=== PATIENT | female | born 1965 | race African-American/Black ===

== ENCOUNTER 2022-01-21 13:24 | Inpatient (IN) | payer MEDICARE, OTHER, SELFPAY ==
[2022-01-21] VITALS (30 sets, daily range): BP systolic 101–173; BP diastolic 63–101; PULSE 53–92; RESP 13–24; TEMP 36.4–36.5; O2SAT 97–100; BMI 29.9
[2022-01-21 14:03] LABS: Basophils Percent Auto 0.5 % (0.2-1.2); Eosinophils Absolute Auto 0.2 K/mm3 (0-0.3); Eosinophils Percent Auto 2.5 % (0-4.4); Hematocrit 33.4 % (37.0-47.0); Hemoglobin 10.9 g/dL (12.0-15.0); Immature Granulocyte Absolute 0.01 K/mm3 (0.00-0.031); Immature Granulocyte Percent A 0.2 % (0-0.5); Lymphocytes Absolute Auto 1.76 K/mm3 (0.9-3.2); Mean Corpuscular HGB Conc 32.6 g/dl (32-36); Mean Corpuscular Hemoglobin 29.6 pg (26-34); Mean Corpuscular Volume 90.8 fl (80-100); Mean Platelet Volume 10.3 fl (7.4-10.4); Monocytes Absolute Auto 0.4 K/mm3 (0.1-0.6); Neutrophils Absolute Auto 4.2 K/mm3 (1.3-6.7); Neutrophils Percent Auto 63.8 % (45.5-73.1); Platelet Count Result 412 k/mm3 (150-375); Red Blood Count 3.68 M/mm3 (4.2-5.4); Red Cell Distribution Width 16.5 % (11.5-14.5); White Blood Count 6.5 K/mm3 (4.5-10.0)
[2022-01-21 14:13] LABS: Alanine Aminotransferase 21 U/L (6-35); Albumin Level 4.1 g/dL (3.5-5.1); Alkaline Phosphatase 63 U/L (38-126); Anion Gap 8 mmol/L (8-16); Aspartate Amino Transferase 38 U/L (14-36); Bilirubin,Total 0.4 mg/dL (0.2-1.3); Blood Urea Nitrogen 12 mg/dL (7-17); Calcium 8.8 mg/dL (8.4-10.2); Carbon Dioxide 30 mmol/L (22-30); Chloride 105 mmol/L (98-107); Estimated CRCL calculation 63 ml/min; Estimated Glomerular Filt Rate > 60; Glucose 96 mg/dL (65-110); Potassium 3.5 mmol/L (3.4-5.0); Sodium 143 mmol/L (137-145)
[2022-01-21 14:14] LABS: Acetaminophen < 10 ug/mL (10-30); Ethanol < 10 mg/dL (<10); Salicylate < 1.0 mg/dL (2-20)
[2022-01-21 14:20] LABS: Amphetamine Screen Urine Positive (Negative); Barbiturate Screen Urine Negative (Negative); Benzodiazepines Screen Urine Positive (Negative); Cannabinoid Screen Urine Negative (Negative); Cocaine Screen Urine Negative (Negative); Methadone Screen Urine Negative (Negative); Opiate Screen Urine Negative (Negative); Phencyclidine Screen Urine Negative (Negative)
--- NOTE | 2022-01-21 14:21 | ED.GENADULT ---
HPI - General Adult General Chief complaint: Overdose Stated complaint: overdose Time Seen by Provider: 01/21/22 13:52 History of Present Illness HPI narrative: 56-year-old female presenting the emergency department for evaluation of an intentional overdose of Xanax. states that he attempted to take the medications away from her but at approximately 1:00 she took an unknown amount of medication possibly including Xanax. states he is unaware of the intention of the overdose. Patient does have a note in her pants that conveyed this was an intentional overdose. Patient does have a prior history of depression per family. Related Data Home Medications Medication Instructions Recorded Confirmed alprazolam 0.5 mg tablet 0.5 mg PO QNOON 01/21/22 01/21/22 alprazolam 1 mg tablet 1 mg PO BID 01/21/22 01/21/22 amlodipine 10 mg tablet 10 mg PO DAILY 01/21/22 01/21/22 dextroamphetamine-amphetamine 30 1 tablet PO BID 01/21/22 01/21/22 mg tablet hyoscyamine sulfate 0.125 mg 0.125 mg sublingual TID PRN Muscle 01/21/22 01/21/22 sublingual tablet Spasm omeprazole 40 mg capsule,delayed 40 mg PO BID 01/21/22 01/21/22 release pantoprazole 40 mg tablet,delayed 40 mg PO BID 01/21/22 01/21/22 release Allergies Allergy/AdvReac Type Severity Reaction Status Date / Time NICK Inhibitors Allergy Unknown Verified 01/21/22 18:31 iodine Allergy Unknown Verified 01/21/22 18:31 Review of Systems Review of Systems: ROS unobtainable: Yes unobtainable due to medical condition [facility] Past Medical History Medical History (Updated 01/21/22 @ 19:43 by Kaylen Hammonds NP) Attention deficit disorder Depression with anxiety Gastritis Hypertension Surgical History Surgical History (Updated 01/21/22 @ 19:44 by Kaylen Hammonds NP) H/O cervical spinal arthrodesis S/P partial hysterectomy Family History Family History (Updated 01/21/22 @ 19:45 by Kaylen Hammonds NP) Unknown Unknown family medical history Social History Social History (Updated 01/21/22 @ 19:45 by Kaylen Hammonds NP) Social History: the patient is a iagu-gn-fmhn mom. She has 2 children. She is . She denies any alcohol marijuana or tobacco use. She denies any durable power attorney law clerk for healthcare. Code status full code Smoking status: Never smoker Alcohol intake: never Substance use: never Substance use type: does not use Spiritual care concerns: No Exam Narrative: APPEARANCE: Somnolent but does awaken to stimuli HEAD: normocephalic, atraumatic. EYES: PERRLA/EOMI, conjunctivae clear. NOSE: Normal no drainage EARS:TMS clear with good light reflex. THROAT: Pharynx clear, no exudate. NECK: Supple. No adenopathy, no masses. RESPIRATORY: Airway patent, respirations nonlabored. Clear to auscultation bilaterally, no rales, rhonchi, wheezing. CARDIOVASCULAR: Regular rate and rhythm without murmurs rubs or gallops. ABDOMINAL: Soft, nontender, nondistended, normal bowel sounds MUSCULOSKELETAL: Moves all extremities. Strength/ROM intact, No edema, No calf tenderness. NEURO: Alert. Cranial nerves II through XII intact. Grossly intact SKIN: Warm, dry. Normal Color Course Reevaluation(s) Reevaluation #1: At time of transfer to the floor patient was more alert and appropriate and was responsive to verbal stimuli. Vital Signs Vital signs: Vital Signs Pulse Rate 71 01/21/22 13:44 Respiratory Rate 19 01/21/22 13:44 Temperature 97.7 F 01/21/22 20:00 Pulse Rate 73 01/21/22 20:00 Respiratory Rate 13 01/21/22 20:00 Blood Pressure 120/81 01/21/22 20:00 Pulse Oximetry 100 01/21/22 20:00 Oxygen Delivery Room Air 01/21/22 17:30 Medical Decision Making Vital Signs Vital Signs: Vital Signs Pulse Rate 71 01/21/22 13:44 Respiratory Rate 19 01/21/22 13:44 Temperature 97.7 F 01/21/22 20:00 Pulse Rate 73 01/21/22 20:00 Respiratory Rate 13 01/21/22 20:00 Blood Pressure
[2022-01-21 14:34] LABS: Appearance Urine Clear (Clear); Bilirubin Urine Negative (Negative); Blood Urine 1+ (Negative); Color Urine Yellow (Yellow); Glucose Urine UA Negative (Negative); Ketones Urine Negative (Negative); Leukocyte Esterase Ur Trace LEU/UL (Negative); Nitrate Urine Negative (Negative); Protein Urine Negative (Negative); Specific Grav Ur 1.015 (1.001-1.035); Urobilinogen Urine 0.2 mg/dL (<2.0); pH Urine 6.5 (5.0-9.0)
[2022-01-21 14:40] LABS: Add Urine Microscopic? YES; Bacteria Urine Trace /hpf; Mucus Urine Rare /lpf; Squamous Epithelial Cell Urine Rare /hpf (Few); WBC Urine 0-3 /hpf
[2022-01-21 14:41] LABS: SARS-CoV-2 RNA PCR Negative
[2022-01-21 14:48] LABS: Thyroid Stimulating Hormone 0.193 uIU/mL (0.465-4.680)
[2022-01-21] MEDS: SODIUM CHLORIDE 0.9% IV 1,000 ML 999 ML IV CONT (17:22)
--- NOTE | 2022-01-21 17:30 | PC.NURSE ---
Addendum entered by Marcelina Porras RN 01/21/22 20:02: RN obtained phone numbers for patient mother and brother. Updated numbers with admitting. Fred Montejo is not to visit patient at this time. Original Note: Patient stated she only wants her Mother Yi and Brother George to visit at this time. patient does not know there numbers at this time.
--- NOTE | 2022-01-21 18:11 | ADMGEN ---
This patient, Deepali Montejo, was admitted to Intensive Care Unit-9 at 1720. Patient/family oriented to hospital policies and general routines including ID bracelet, bed and alarms, visiting hours, pain management, procedures, bathroom and other care routines, personal items, smoking policy, room service/diet, and visiting hours. Information on how to activate the Rapid Response Team has been discussed. Patient/Family are encouraged to report perceived risks to care and to ask questions if they do not understand what they are told or what they should do.
--- NOTE | 2022-01-21 18:53 | PM.IMHP ---
H&P: HPI History of Present Illness Date/Time: 01/21/22 18:53 Chief Complaint: overdose Narrative: this is a 56-year-old female patient who has a history of having depression and anxiety as well as ADD. The patient took in intentional overdose of Xanax. The patient has been having and be with her and he attempted to get the medication away from her. A suicide note was found in her pants. The patient took an unknown amount of Xanax approximately 1:00 p.m. today. The patient was very lethargic. She is difficult to arouse. It is difficult to get her to answer questions for the interview. Patient will wake up for few minutes any other questions and then go right back to sleep. Her tox screen was positive for amphetamines and benzodiazepines. H&H is 10.9 and 33.4. The patient is being admitted to observation status on the date of service of 01/21/2022. Review of Systems Review of Systems: See HPI All systems reviewed & are unremarkable except as noted in HPI and below Constitutional: Constitutional: Reports as per HPI and Reports no additional constitutional complaints Eyes: Eyes: Reports as per HPI and Reports no additional eye complaints ENT: Reports system reviewed and no additional complaints, except as documented and Reports Normal hearing present Cardiovascular: Cardiovascular: Reports no additional cardiovascular complaints Respiratory: Respiratory: Reports no additional respiratory complaints and Reports no additional respiratory complaints Gastrointestinal: Gastrointestinal: Reports as per HPI and Reports no additional gastrointestinal complaints Musculoskeletal: Musculoskeletal: Reports no additional musculoskeletal complaints Integumentary/Breasts: Skin/Breast: Reports system reviewed and no additional complaints, except as docu and Reports as per HPI Neurologic: Reports system reviewed and no additional complaints, except as documented, Reports as per HPI and Reports Normal hearing present Psychiatric: Psychiatric: Reports no additional psychiatric complaints and Reports as per HPI Endocrine: Endocrine: Reports no additional endocrine complaints Hematologic/Lymphatic: Hematologic/Lymphatic: Reports no additional hematologic/lymphatic complaints Allergic/Immunologic: Allergic/Immunologic: Reports no additional allergic/immunologic complaints [facility] Past Medical History Medical History (Updated 01/21/22 @ 19:43 by Kaylen Hammonds NP) Attention deficit disorder Depression with anxiety Gastritis Hypertension Surgical History Surgical History (Updated 01/21/22 @ 19:44 by Kaylen Hammonds NP) H/O cervical spinal arthrodesis S/P partial hysterectomy Family History Family History (Updated 01/21/22 @ 19:45 by Kaylen Hammonds NP) Unknown Unknown family medical history Social History Social History (Updated 01/21/22 @ 19:45 by Kaylen Hammonds NP) Social History: the patient is a bqvg-ie-ienr mom. She has 2 children. She is . She denies any alcohol marijuana or tobacco use. She denies any durable power associate attorney for healthcare. Code status full code Smoking status: Never smoker Alcohol intake: never Substance use: never Substance use type: does not use Spiritual care concerns: No Meds Home Medications and Allergies Home Medications Medication Instructions Recorded Confirmed Type alprazolam 0.5 mg tablet 0.5 mg PO QNOON 01/21/22 01/21/22 History alprazolam 1 mg tablet 1 mg PO BID 01/21/22 01/21/22 History amlodipine 10 mg tablet 10 mg PO DAILY 01/21/22 01/21/22 History dextroamphetamine-amphetamine 30 1 tablet PO BID 01/21/22 01/21/22 History mg tablet hyoscyamine sulfate 0.125 mg 0.125 mg sublingual TID PRN Muscle 01/21/22 01/21/22 History sublingual tablet Spasm omeprazole 40 mg capsule,delayed 40 mg PO BID 01/21/22 01/21/22 History release pantoprazole 40 mg tablet,delayed 40 mg PO BID 01/21/22 01/21/22 History release
[2022-01-21] MEDS: SODIUM CHLORIDE 0.9% IV 1,000 ML 125 ML IV CONT (19:03)
[2022-01-21] MEDS: FAMOTIDINE 20 MG/2 ML VIAL IV PUSH (21:42)
[2022-01-22] VITALS (18 sets, daily range): BP systolic 104–161; BP diastolic 70–95; PULSE 55–92; RESP 13–26; TEMP 35.9–36.9; O2SAT 98–100
[2022-01-22] MEDS: SODIUM CHLORIDE 0.9% IV 1,000 ML 125 ML IV CONT ×2 (02:47→10:39)
[2022-01-22 04:18] LABS: Basophils Percent Auto 0.5 % (0.2-1.2); Eosinophils Absolute Auto 0.3 K/mm3 (0-0.3); Eosinophils Percent Auto 5.4 % (0-4.4); Hemoglobin 10.4 g/dL (12.0-15.0); Immature Granulocyte Absolute 0.01 K/mm3 (0.00-0.031); Immature Granulocyte Percent A 0.2 % (0-0.5); Lymphocytes Absolute Auto 2.46 K/mm3 (0.9-3.2); Mean Corpuscular HGB Conc 32.5 g/dl (32-36); Mean Corpuscular Hemoglobin 29.3 pg (26-34); Mean Corpuscular Volume 90.1 fl (80-100); Mean Platelet Volume 9.6 fl (7.4-10.4); Monocytes Absolute Auto 0.5 K/mm3 (0.1-0.6); Monocytes Percent Auto 8.8 % (2.6-8.5); Neutrophils Absolute Auto 2.3 K/mm3 (1.3-6.7); Neutrophils Percent Auto 41.1 % (45.5-73.1); Platelet Count Result 367 k/mm3 (150-375); Red Blood Count 3.55 M/mm3 (4.2-5.4); Red Cell Distribution Width 16.6 % (11.5-14.5); White Blood Count 5.6 K/mm3 (4.5-10.0)
[2022-01-22 04:35] LABS: Alanine Aminotransferase 20 U/L (6-35); Albumin Level 3.2 g/dL (3.5-5.1); Alkaline Phosphatase 64 U/L (38-126); Anion Gap 7 mmol/L (8-16); Aspartate Amino Transferase 41 U/L (14-36); Bilirubin,Total 0.4 mg/dL (0.2-1.3); Blood Urea Nitrogen 8 mg/dL (7-17); Calcium 8.8 mg/dL (8.4-10.2); Carbon Dioxide 27 mmol/L (22-30); Chloride 107 mmol/L (98-107); Estimated CRCL calculation 86 ml/min; Estimated Glomerular Filt Rate > 60; Glucose 91 mg/dL (65-110); Magnesium 1.9 mg/dL (1.6-2.3); Potassium 3.5 mmol/L (3.4-5.0); Sodium 141 mmol/L (137-145)
[2022-01-22 05:10] LABS: Thyroid Stimulating Hormone Reflex 0.164 uIU/mL (0.465-4.68)
[2022-01-22 08:01] LABS: Rapid Plasma Reagin Non-Reactive (NonReactive)
[2022-01-22] MEDS: amLODIPine BESYLATE 5 MG TABLET 10 MG PO (08:08)
[2022-01-22] MEDS: FAMOTIDINE 20 MG/2 ML VIAL IV PUSH (08:08)
[2022-01-22] MEDS: SODIUM CHLORIDE 0.9% IV 1,000 ML 999 ML IV CONT (08:15)
[2022-01-22 09:32] LABS: Free T4 Free Thyroxine Reflex 0.94 ng/dL (0.78-2.19)
[2022-01-22] MEDS: HYDROcodone/acetaminophen (*CRX) 5-325 MG TABLET 1 TAB PO ×3 (10:04→23:46)
[2022-01-22] MEDS: ONDANSETRON INJ 4 MG/2 ML VIAL IV PUSH ×3 (10:39→23:47)
[2022-01-22] MEDS: SUCRALFATE SUSP 100 MG/ML 10 ML UDC 1000 MG PO ×3 (12:05→19:47)
[2022-01-22] MEDS: PANTOPRAZOLE SODIUM IV 40 MG VIAL IV PUSH ×2 (12:05→19:47)
[2022-01-22] MEDS: diphenhydrAMINE HCl INJ 50 MG/ML VIAL 25 MG IV PUSH ×3 (12:06→23:47)
--- NOTE | 2022-01-22 13:09 | PM.IMPN ---
Progress Note: A&P Assessment and Plan (1) Drug overdose: Qualifiers: Encounter type: initial encounter Injury intent: intentional self-harm Qualified Code(s): T50.902A - Poisoning by unspecified drugs, medicaments and biological substances, intentional self-harm, initial encounter Code(s): T50.901A - Poisoning by unspecified drugs, medicaments and biological substances, accidental (unintentional), initial encounter Status: Acute Assessment and Plan: Patient with history of anxiety, depression and ADD. Patient states that while arguing with her , she took 2 full Xanax tablets. She denies suicide ideation or that this was a suicide attempt. She did have a note in her pocket that is suspicious for suicide note though she did not specifically states that she wanted to end her life. patient appears to be recovering well from the Xanax overdose. Will remove Pedraza catheter. Stop IV fluids. Crisis evaluation possible placement. Discussed (2) Depression with anxiety: Code(s): F41.8 - Other specified anxiety disorders Status: Acute Assessment and Plan: Patient has depression and anxiety and takes Xanax and Seroquel at home. These medications on hold. As above. (3) Attention deficit disorder: Code(s): F98.8 - Other specified behavioral and emotional disorders with onset usually occurring in childhood and adolescence Status: Acute Assessment and Plan: Mood stable. Continue to hold Adderall (4) Hypertension: Code(s): I10 - Essential (primary) hypertension Status: Acute Assessment and Plan: blood pressure elevated at times. Norvasc has been resumed with improvement. Continue with Norvasc. (5) Gastritis: Code(s): K29.70 - Gastritis, unspecified, without bleeding Status: Acute Assessment and Plan: Patient with gastritis and history gastric ulcer. May have mild anemia related to recent GI bleed. Continue Carafate and Protonix. Plan DVT Prophylaxis - SCDs Code status: Full Diet: heart healthy with dietary supplements. Subjective Date/time seen: 01/22/22 13:09 Interval history: 56yo female with ADD, anxiety and depression here after intentional Xanax overdose. She denies suicidal ideation recently. She has never been hospitalized in a psychiatric facility. She states that she was fighting with her and dropped her Xanax on the floor. As she was picking up tablets, she took 2 full Xanax doses. She normally takes Xanax 1 tablet twice a day with half a tablet at noon. She does see a counselor at [facility]. 's available who states the patient has been lot of pain and anxiety recent. Patient did have a note in her pocket that mentions that there is ongoing argument with the about patient's fidelity. Recent medical events include right total knee replacement in October. She had endoscopy including EGD and colonoscopy 2 weeks ago and found to have gastric ulcer. She was on Percocet but is down to her last tablet. Percocet was for pain from a gastric ulcer she states. She also had a kidney stone recently with stent placement. Stent is to be removed on 02/02/2022 by a urologist at [facility]. Exam Narrative: AF 96.6 137/77 74 14 100% ra Gen - NARD Chest - CTA bilaterally, nml RR CV - RRR S1/S2 Abd - Soft, ND, Positive BS, mild lower quadrant pain without guarding - Pedraza secured draining clear yellow urine Ext - No pedal edema Psych - depressed mood and sad affect. speaks softly. well kempt Skin - Warm and dry Objective Data Vital Signs Vital Signs: Vital Signs - 24 hr 01/21/22 13:48 01/21/22 13:44 01/21/22 13:45 Temperature 97.6 F Pulse Rate 72 71 92 Respiratory Rate 19 19 24 H Blood Pressure 123/73 Pulse Oximetry 100 Oxygen Delivery Room Air 01/21/22 13:46 01/21/22 15:16 01/21/22 18:00 Temperature Pulse Rate 82 60
[2022-01-22 13:50] LABS: Total Triiodothyronine (T3) 1.18 NG/ML (0.97-1.69)
--- NOTE | 2022-01-22 14:15 | PC.NURSE ---
Crisis in for patient evaluation
--- NOTE | 2022-01-22 15:35 | WPDCNINT ---
Assessment and Plan Assessment and plan (1) Drug overdose: Qualifiers: Encounter type: initial encounter Injury intent: intentional self-harm Qualified Code(s): T50.902A - Poisoning by unspecified drugs, medicaments and biological substances, intentional self-harm, initial encounter Code(s): T50.901A - Poisoning by unspecified drugs, medicaments and biological substances, accidental (unintentional), initial encounter Status: Acute Assessment and Plan: Patient with history anxiety, depression ADD. Presented the ED with Xanax overdose on unknown amount -patient currently denies suicide ideation, suicide attempt on home was settled ideation. -patient did have a suicide note in her pocket. -currently medically stable, -will have care coordination and crisis management evaluate the patient -patient has been signed off by poison Control -suicide precautions -bedside sitter in room (2) Depression with anxiety: Code(s): F41.8 - Other specified anxiety disorders Status: Acute Assessment and Plan: Takes Seroquel and Xanax at home, currently on hold (3) Attention deficit disorder: Code(s): F98.8 - Other specified behavioral and emotional disorders with onset usually occurring in childhood and adolescence Status: Acute Assessment and Plan: Hold Adderall -urine drug screen was positive for amphetamines and benzos (4) Hypertension: Code(s): I10 - Essential (primary) hypertension Status: Acute Assessment and Plan: Continue amlodipine (5) Gastritis: Code(s): K29.70 - Gastritis, unspecified, without bleeding Status: Acute Assessment and Plan: Continue Carafate and Protonix Plan Stress ulcer prophylaxis: Protonix and Carafate Nutrition: Heart healthy diet Code Status: Full code Critical Care Time Spent: 41 minutes Due to a high probability of clinically significant, life threatening deterioration, the patient required my highest level of preparedness to intervene emergently and I personally spent this critical care time directly and personally managing the patient. This critical care time included obtaining a history; examining the patient; pulse oximetry; ordering and review of studies; arranging urgent treatment with development of a management plan; evaluation of patient's response to treatment; frequent reassessment; and discussions with other providers. It was exclusive of separately billable procedures and treating other patients and teaching time. Please see Assessment and Plan section and the rest of the note for further information on patient assessment and treatment It Sales Consultant Consult Note Consult date: 01/22/22 Reason for consult: Benzodiazepine overdose HPI: Deepali Montejo is a 56 year old female with past medical history of ADD, depression with anxiety with gastritis, hypertension, he peptic ulcer disease, chronic pain secondary to cervical spine surgery, kidney stones, knee replacement surgeries presented the ED on 01/21/2022 with intentional overdose of unknown amount of Xanax 1 mg pills. Patient did have a note in a [place] conveyed that it was an intentional overdose. Patient was given 1 L IV fluid bolus and transferred to the ICU for further management -urine tox screen was positive for amphetamines and benzodiazepines Patient seen and examined this morning in the ICU, is awake, alert, oriented x3. Complains of neck, back and knee pain. She denies any suicidal or homicidal ideation at this time. Flat depressed affect, hemodynamically stable, adequate urine output, afebrile Review of Systems Review of Systems: All systems reviewed & are unremarkable except as noted in HPI and below PMFSH Past Medical History Medical History (Updated 01/21/22 @ 19:43 by Kaylen Hammonds NP) Attention deficit disorder Depression with anxiety Gastritis Hypertension Surgical History Surgical History (Updated
[2022-01-22] MEDS: LACTULOSE 20 GM/30 ML UDC 6.7 GM PO (17:44)
[2022-01-23] VITALS: BP 138/76; PULSE 65; RESP 14; TEMP 37; O2SAT 98
--- NOTE | 2022-01-23 00:25 | PC.NURSE ---
This patient, Deepali Montejo, was transferred to [facility] on 01/23/22 at 0025. Personal belongings sent with patient. Report given to JULIET Gloria. Appropriate documentation sent with patient. Sitter with patient.
--- NOTE | 2022-01-23 00:42 | PC.NURSE ---
Received patient transfer from ICU 9 to room 333 @0030. Patient's belongings are at the bedside and a sitter is present. Patient oriented to room and SI precautions were implemented. Patient is resting comfortably.
[2022-01-23 05:01] VITALS: BP 135/78; PULSE 59; RESP 20; TEMP 36.6; O2SAT 97
[2022-01-23] MEDS: SUCRALFATE SUSP 100 MG/ML 10 ML UDC 1000 MG PO ×4 (05:44→20:30)
[2022-01-23 05:55] LABS: Hematocrit 34.6 % (37.0-47.0); Hemoglobin 11.2 g/dL (12.0-15.0); Mean Corpuscular HGB Conc 32.4 g/dl (32-36); Mean Corpuscular Hemoglobin 29.4 pg (26-34); Mean Corpuscular Volume 90.8 fl (80-100); Platelet Count Result 400 k/mm3 (150-375); Red Blood Count 3.81 M/mm3 (4.2-5.4); Red Cell Distribution Width 16.6 % (11.5-14.5); White Blood Count 8.3 K/mm3 (4.5-10.0)
[2022-01-23 06:08] LABS: Alanine Aminotransferase 19 U/L (6-35); Albumin Level 3.7 g/dL (3.5-5.1); Alkaline Phosphatase 74 U/L (38-126); Anion Gap 7 mmol/L (8-16); Aspartate Amino Transferase 29 U/L (14-36); Bilirubin,Total 0.4 mg/dL (0.2-1.3); Blood Urea Nitrogen 8 mg/dL (7-17); Carbon Dioxide 27 mmol/L (22-30); Chloride 103 mmol/L (98-107); Creatine Kinase 56 U/L (30-135); Estimated CRCL calculation 75 ml/min; Estimated Glomerular Filt Rate > 60; Glucose 89 mg/dL (65-110); Potassium 3.4 mmol/L (3.4-5.0); Sodium 137 mmol/L (137-145)
[2022-01-23] MEDS: LACTULOSE 20 GM/30 ML UDC 6.7 GM PO ×2 (08:21→16:59)
[2022-01-23] MEDS: PANTOPRAZOLE 40 MG TABLET PO ×2 (08:21→20:30)
[2022-01-23] MEDS: amLODIPine BESYLATE 5 MG TABLET 10 MG PO (08:21)
[2022-01-23] MEDS: HYDROcodone/acetaminophen (*CRX) 5-325 MG TABLET 1 TAB PO (08:32)
[2022-01-23] MEDS: ACETAMINOPHEN 325 MG TABLET 650 MG PO ×2 (15:20→20:33)
--- NOTE | 2022-01-23 15:58 | PC.NURSE ---
Pt came in after fighting with her at home, followed by a suicide attempt. Pt has not consistently told staff what happened. Pt was found to have a suicide note in pocket. Pt had previously been evaluated and cleared by crisis, but pt withheld information pertinent to their decision making process. Pt was re-evaluated by crisis team and determined that she needed to be placed on an involuntary hold. Pt had phone call with [place] to determine if pt would be applicable for placement. Nurse ready to wear department manager and laundry housekeeper have agreed to let and mother come to visit patient. I do not agree with this decision since the and her fighting is what led to the situation that brought the pt in. I voiced my concerns about this triggering and upsetting pt. Charge nurse aware of and agrees with concerns that we are allowing visitors at this time. We are monitoring closely and will reassess the situation if problems with visitors occur. Pt's mother has called to inform me that she and her would be coming to see the pt. I explained that the pt was only allowed one visitor and the stated they would just switch out. I informed them that was not allowed. Pt has bouts of tearfulness and states she feels like she is being punished. She states that she does not know why she is going to a facility for help and not going home. I explained to the pt that we are just trying to help her and be sure that she is safe before she is discharged home. Will continue to monitor pt. Pt continues to have hospital supplied surveillance with sitter regardless of visitor status.
[2022-01-23 16:00] VITALS: BP 139/97; PULSE 75; RESP 20; TEMP 35.7; O2SAT 99
--- NOTE | 2022-01-23 17:19 | PM.DS ---
DS: Admitting Diagnosis Discharge Date 01/23/22 Admitting Diagnosis Drug Overdose DS: Discharge Diagnosis Discharge Diagnosis (1) Drug overdose: Qualifiers: Encounter type: initial encounter Injury intent: intentional self-harm Qualified Code(s): T50.902A - Poisoning by unspecified drugs, medicaments and biological substances, intentional self-harm, initial encounter Code(s): T50.901A - Poisoning by unspecified drugs, medicaments and biological substances, accidental (unintentional), initial encounter Status: Acute (2) Depression with anxiety: Code(s): F41.8 - Other specified anxiety disorders Status: Acute (3) Attention deficit disorder: Code(s): F98.8 - Other specified behavioral and emotional disorders with onset usually occurring in childhood and adolescence Status: Acute (4) Hypertension: Code(s): I10 - Essential (primary) hypertension Status: Acute (5) Gastritis: Code(s): K29.70 - Gastritis, unspecified, without bleeding Status: Acute DS: Summary Hospital Course Reason for hospitalization: 56yo female with ADD, anxiety and depression here after intentional Xanax overdose. Hospital Course: Patient with history of anxiety, depression and ADD.?She takes Xanax and Seroquel at home. Patient states that while arguing with her , she took 2 full Xanax tablets.? She denies suicide ideation or that this was a suicide attempt.?She did have a note in her pocket that is suspicious for suicide note though she did not specifically states that she wanted to end her life. Patient was monitored in the ICU and recovered well from the overdose. During her hospital course, the story of the events changed so unclear exactly what happened. She was evaluated by Crisis and inpatient psychiatric placement was recommended. The reasoning for inpatient psychiatric care was explained to the patient but she did not appear to be receptive to this information. She overall did well and was able to be transferred to psychiatric facility. Status at Discharge Cognitive/behavioral status at discharge: Stable Time Spent with Patient Time attestation: Total time spent providing and/or coordinating discharge services: 35 minutes Time spent: Greater than 30 minutes Exam Narrative: AF 97.8 135/78 59 20 97% ra Gen - NARD Chest - CTA bilaterally, nml RR CV - RRR S1/S2 Abd - Soft, ND, +BS Ext - No pedal edema Psych - depressed mood Skin - Warm and dry DS: Data Data Completed and Pending Labs on day of discharge: Labs from last 24 hours 01/23/22 01/23/22 05:43 05:43 WBC 8.3 RBC 3.81 L Hgb 11.2 L Hct 34.6 L MCV 90.8 MCH 29.4 MCHC 32.4 RDW 16.6 H Plt Count 400 H MPV 10.0 Sodium 137 Potassium 3.4 Chloride 103 Carbon Dioxide 27 Anion Gap 7 L BUN 8 Creatinine 0.70 Estim Creat Clear Calc 75 Estimated GFR > 60 Glucose 89 Calcium 9.0 Total Bilirubin 0.4 AST 29 ALT 19 Alkaline Phosphatase 74 Total Creatine Kinase 56 Total Protein 6.0 L Albumin 3.7 Discharge Plan Discharge Attending physician on discharge: Lefty Driscoll Consulting providers: eJanie Dejesus Discharging Clinician: Lefty Driscoll Anticipated Discharge Date/Time: 01/23/22 17:26 Patient Disposition: Acute Care Hospital Activity: as tolerated Diet: heart healthy Discharge Instructions: Follow-up with your doctor in 1-2 weeks. Please call for appointment. Thank you for using [facility] for your health care needs. Patient Instructions: Antibiotic Form, Depression (DC), Help Prevent Suicide (DC), Suicide Prevention (DC) Stand Alone Forms: General Discharge Information Follow-up/Referrals: PHYSICIAN NOT ON STAFF,NONSTAFF [Primary Care Provider] - Call for Appointment Discharge Medications: [place] Antifungal (micon) 2 % Ointment 1 applic top
== END 2022-01-23 20:50 | disposition short-term general hospital (02) | DRG 918 ==
LOC: ANHED 15:46 → ANHICU 16:23 → ANH3MEDSUR 01-23 00:37
PROVIDERS: Nurse Practitioner; Admitting Provider Student in an Organized Health Care Education/Training Program; Emergency Provider Emergency Medicine; Visit Provider Internal Medicine
DX: T42.4X2A Poisoning by benzodiazepines, intentional self-harm, initial encounter (principal); I10 Essential (primary) hypertension; K29.70 Gastritis, unspecified, without bleeding; K27.9 Peptic ulcer, site unspecified, unspecified as acute or chronic, without hemorrhage or perforation; F98.8 Other specified behavioral and emotional disorders with onset usually occurring in childhood and adolescence; F32.A Depression, unspecified; F41.9 Anxiety disorder, unspecified; Z20.822 Contact with and (suspected) exposure to COVID-19; Z96.651 Presence of right artificial knee joint; Z87.442 Personal history of urinary calculi
CPT/HCPCS: 36415; 80053; 80307; 81001; 81025; 82550; 82728; 83735; 84439; 84443; 84480; 85025; 85027; 86592; 96361; 96374; 96375; 96376; 99285; A9270; C9113; C9803; G0378; J1200; J2405; J7030; U0003; U0005

== ENCOUNTER 2023-08-28 00:58 | Emergency (ER) | payer MEDICARE, OTHER, SELFPAY ==
[2023-08-28] VITALS (10 sets, daily range): BP systolic 121–160; BP diastolic 83–105; PULSE 81; RESP 18; TEMP 36.4; O2SAT 97–100
--- NOTE | ~2023-08-28 | CT_ITS ---
EXAMINATION: CT abdomen pelvis wo con DATE: 08/28/2023 03:18 INDICATION: Epigastric abdominal pain. Nausea and vomiting. TECHNIQUE: Computed tomography (CT) of the abdomen and pelvis was performed without intravenous contr ast. Automated exposure control and iterative reconstruction technique were employed. The dose-length product was 445.85 mGy-cm. COMPARISON: None. FINDINGS: The visualized portions of the lung bases demonstrate mild atelectasis. No pleural effusion . The heart size is normal. No pericardial effusion. The liver and spleen are normal. There are surgi bobo changes in the stomach. There are changes of cholecystectomy. The pancreas, adrenal glands, and k idneys are normal. There are changes of right inguinal hernia repair. There are no dilated loops of b owel. There is a moderate volume of stool in colon. The appendix is not visualized. There is widespre ad edema in the mesentery. There is a small volume of ascites. There are no pathologically enlarged l ymph nodes. There is severe thoracic and lumbar spondylosis. IMPRESSION: 1. Widespread edema in the mesentery. 2. Small volume of ascites. Reviewed, dictated and finalized at location A.
--- NOTE | 2023-08-28 01:32 | ECG_ITS ---
Measurements Intervals [place] Rate: 71 P: 36 [place]: 171 QRS: 3 QRSD: 84 T: 10 QT: 386 QTc: 420 Interpretive Statements SINUS RHYTHM DELAYED PRECORDIAL R/S TRANSITION BASELINE ARTIFACT- II, III, AVF BORDERLINE ECG NO PREVIOUS ECG AVAILABLE FOR COMPARISON Electronically Signed On 08-28-2023 6:39:22 CDT by Ba Cunha D.O.
--- NOTE | 2023-08-28 01:32 | ED.ABDPAIN ---
HPI - Abdominal Pain General Chief Complaint: Abdominal Pain <HERMILA Daily Last Filed: 08/28/23 02:21> Stated Complaint: abd pain <HERMILA Daily Last Filed: 08/28/23 02:21> Time Seen by Provider: 08/28/23 01:18 <HERMILA Daily Last Filed: 08/28/23 02:21> Source: patient <HERMILA Daily Filed: 08/28/23 02:21> Mode of arrival: ambulatory <HERMILA Daily Filed: 08/28/23 02:21> Limitations: no limitations <HERMILA Daily Filed: 08/28/23 02:21> History of Present Illness HPI narrative: Patient is a 58 y/o female who presents to the ED with c/o epigastric abdominal pain. Patient reports she developed pain throughout her upper abdomen approximately 1 hour prior to arrival. she tried taking Tylenol at home without improvement. States pain radiates up into her chest slightly. She notes pain feels similar to when she had her gallbladder attacks in the past, but she has since had her gallbladder removed. Denies previous history of pancreatitis. She does not drink alcohol. Reports nausea, vomiting. Denies diarrhea constipation. Denies fevers. <HERMILA Daily Last Filed: 08/28/23 02:21> Related Data Home Medications: Home Medications Medication Instructions Recorded Confirmed alprazolam 0.5 mg tablet 0.5 mg PO QNOON 01/21/22 08/22/23 alprazolam 1 mg tablet 1 mg PO BID 01/21/22 08/22/23 amlodipine 10 mg tablet 10 mg PO DAILY 01/21/22 08/22/23 dextroamphetamine-amphetamine 30 1 tablet PO BID 01/21/22 08/22/23 mg tablet pantoprazole 40 mg tablet,delayed 40 mg PO BID 01/21/22 08/22/23 release hydroxyzine HCl 25 mg tablet 25 mg PO TID PRN Anxiety 01/22/22 08/22/23 trazodone 150 mg tablet 150 mg PO HS 01/22/22 08/22/23 amitriptyline 25 mg tablet 25 mg PO 08/22/23 08/22/23 gabapentin 400 mg capsule 400 mg PO 08/22/23 08/22/23 omeprazole 40 mg capsule,delayed 40 mg PO 08/22/23 08/22/23 release <Ceci Conteh PA-C - Last Filed: 08/28/23 02:21> Allergies/Adverse Reactions: Allergies Allergy/AdvReac Type Severity Reaction Status Date / Time Iodinated Contrast Media Allergy Mild Hives Verified 08/28/23 01:30 NICK Inhibitors Allergy Unknown Verified 08/28/23 01:30 iodine Allergy Unknown Verified 08/28/23 01:30 <Ceci Conteh PA-C - Last Filed: 08/28/23 02:21> Review of Systems Review of Systems: CONSTITUTIONAL: Denies fever, chills, or sweats. CARDIOVASCULAR: See HPI. RESPIRATORY: Denies cough or dyspnea. GASTROINTESTINAL: See HPI. GENITOURINARY: Denies dysuria or hematuria. MUSCULOSKELETAL: Denies back pain, extremity pain, myalgia. <Ceci Conteh PA-C - Last Filed: 08/28/23 02:21> All systems reviewed & are unremarkable except as noted in HPI and below <Ceci Conteh PA-C - Last Filed: 08/28/23 02:21> [facility] Past Medical History Medical History: Medical History Attention deficit disorder Depression with anxiety Gastritis Hypertension <Ceci Conteh PA-C - Last Filed: 08/28/23 02:21> Surgical History Surgical History: Surgical History H/O cervical spinal arthrodesis H/O hernia repair History of carpal tunnel release History of knee replacement S/P partial hysterectomy S/P shoulder surgery <Ceci Conteh PA-C - Last Filed: 08/28/23 02:21> Family History Family History: Family History Unknown Unknown family medical history <Ceci Conteh PA-C - Last Filed: 08/28/23 02:21> Social History Social History: Social History Social History: Smoking status: Never smoker Alcohol intake: never Substance use: never
--- NOTE | 2023-08-28 02:06 | PC.NURSE ---
3 different nurses have attemped to start IV on patient with no success. ICU pharmacist in charge owner called to come attempt. Provider aware
[2023-08-28] MEDS: SODIUM CHLORIDE 0.9% IV 1,000 ML 999 ML IV CONT (02:39)
[2023-08-28] MEDS: FAMOTIDINE 20 MG/2 ML VIAL IV PUSH (02:41)
[2023-08-28] MEDS: ONDANSETRON INJ 4 MG/2 ML VIAL IV PUSH (02:41)
[2023-08-28] MEDS: MORPHINE SULFATE (*CRX) 2 MG/ML INJ IV PUSH (02:53)
--- NOTE | 2023-08-28 03:05 | PC.NURSE ---
Phlebotomy called for blood collection
[2023-08-28 03:32] LABS: Basophils Percent Auto 0.1 % (0.2-1.2); Eosinophils Percent Auto 0.1 % (0-4.4); Hematocrit 38.8 % (37.0-47.0); Hemoglobin 13.2 g/dL (12.0-15.0); Immature Granulocyte Absolute 0.02 K/mm3 (0.00-0.031); Immature Granulocyte Percent A 0.2 % (0-0.5); Lymphocytes Absolute Auto 0.98 K/mm3 (0.9-3.2); Lymphocytes Percent Auto 9.1 % (18.3-44.2); Mean Corpuscular Hemoglobin 31.5 pg (26-34); Mean Corpuscular Volume 92.6 fl (80-100); Mean Platelet Volume 9.8 fl (7.4-10.4); Monocytes Absolute Auto 0.4 K/mm3 (0.1-0.6); Monocytes Percent Auto 3.8 % (2.6-8.5); Neutrophils Absolute Auto 9.3 K/mm3 (1.3-6.7); Neutrophils Percent Auto 86.7 % (45.5-73.1); Platelet Count Result 324 k/mm3 (150-375); Red Blood Count 4.19 M/mm3 (4.2-5.4); Red Cell Distribution Width 14.3 % (11.5-14.5); White Blood Count 10.7 K/mm3 (4.5-10.0)
[2023-08-28 03:38] LABS: Bacteria Urine None Seen /hpf; Non Pathogenic Casts 0-2; RBC Urine 0-2 /hpf (0-2); Squamous Epithelial Cell Urine None Seen /hpf (Few); WBC Urine 0-5 /hpf (0-3)
[2023-08-28 03:39] LABS: Appearance Urine Clear (Clear); Bilirubin Urine Negative (Negative); Blood Urine Negative (Negative); Color Urine Yellow (Yellow); Glucose Urine UA Negative (Negative); Ketones Urine Negative (Negative); Leukocyte Esterase Ur 1+ LEU/UL (Negative); Nitrate Urine Negative (Negative); Protein Urine Negative (Negative); Specific Grav Ur 1.015 (1.001-1.035); Urobilinogen Urine 0.2 mg/dL (<2.0)
[2023-08-28 03:40] LABS: Add Urine Microscopic? YES
[2023-08-28 03:47] LABS: Alanine Aminotransferase 38 U/L (6-35); Albumin Level 4.6 g/dL (3.5-5.1); Alkaline Phosphatase 88 U/L (38-126); Anion Gap 7 mmol/L (4-12); Aspartate Amino Transferase 47 U/L (14-36); Bilirubin,Total 0.8 mg/dL (0.2-1.3); Blood Urea Nitrogen 22 mg/dL (7-17); Calcium 9.8 mg/dL (8.4-10.2); Carbon Dioxide 26 mmol/L (22-30); Chloride 104 mmol/L (98-107); Estimated CRCL calculation 86 ml/min; Estimated Glomerular Filt Rate > 60; Glucose 107 mg/dL (65-110); Lipase 41 U/L (23-300); Potassium 4.1 mmol/L (3.4-5.0); Sodium 137 mmol/L (137-145)
[2023-08-28 03:48] LABS: Lactic Acid Reflex 1.1 mmol/L (0.7-2.0)
[2023-08-28 04:05] LABS: Troponin I < 0.012 ng/mL (0.000-0.034)
== END 2023-08-28 04:24 | disposition home or self-care (01) ==
PROVIDERS: Physician Assistant; Emergency Provider Emergency Medicine
DX: R10.13 Epigastric pain (principal); F98.8 Other specified behavioral and emotional disorders with onset usually occurring in childhood and adolescence; F41.8 Other specified anxiety disorders; Z90.710 Acquired absence of both cervix and uterus; Z96.659 Presence of unspecified artificial knee joint; R18.8 Other ascites; R94.31 Abnormal electrocardiogram [ECG] [EKG]
CPT/HCPCS: 36415; 74176; 80053; 81001; 83605; 83690; 84484; 85025; 93005; 96361; 96374; 96375; 99284; J2270; J2405; J7030

== ENCOUNTER 2025-04-22 16:54 | Emergency (ER) | payer MEDICARE, OTHER, SELFPAY ==
--- NOTE | ~2025-04-22 | CT_ITS ---
EXAMINATION: CT angiogram chest, abdomen and pelvis: DATE: 04/22/2025. INDICATION: 60-year-old female with epigastric pain, radiating to the back. Nausea and vomiting. TECHNIQUE: CT angiogram was performed with 100 cc of contrast and 2-D and 3-D images are reconstructed. Radiation dose 940 M GYCM. COMPARISON: Chest x-ray dated 04/22/2025. CT abdomen pelvis dated 08/28/2023. FINDINGS: No acute pulmonary lesions. No pleural or pericardial effusion. No evidence of pulmonary embolus. Thoracic aorta shows no acute dissection. Below the diaphragm, no focal lesions of the liver and spleen. Pancreas shows no acute findings. Postoperative changes of the stomach. Mildly diffusely dilated loops of small bowel are noted. Small bowel loops measure up to 25 mm. There is evidence suggestive of extravasation of the arterial contrast within the cecum. There is no definite mechanical bowel obstruction. Fecal impaction of the rectum. Free fluid in the peritoneal cavity. Abdominal aorta shows no evidence of aneurysm or dissection. Celiac axis, superior mesenteric artery, renal arteries and iliac arteries are normal. Venous structures were not evaluated. IMPRESSION: 1. No acute findings thoracic aorta and abdominal aorta. No evidence of pulmonary embolus. 2. Hepatomegaly. Free fluid in the peritoneal cavity. 3. Diffuse ileus. Suggestion of extravasation of arterial contrast in the right lower quadrant in the cecum due to possible GI bleed. Please correlate with clinical and lab results. Reviewed, dictated and finalized at location T. PROCESS DEPLOYMENT CONSULTANT IMPRESSION: 1. No acute findings thoracic aorta and abdominal aorta. No evidence of pulmona ry embolus. 2. Hepatomegaly. Free fluid in the peritoneal cavity. 3. Diffuse ileus. Suggestion of extravasation of arterial contrast in the right lower quadrant in the cecum due to possible GI bleed. Please correlate with cl inical and lab results.
--- NOTE | ~2025-04-22 | XR_ITS ---
EXAMINATION: XR chest 1V, 04/22/2025 17:53 MERCURY CRACKING TESTER HISTORY: chest pain COMPARISON: No comparisons available. Technique: Single view. Findings: The lungs are clear, no effusion. No pneumothorax. Heart is normal size. Mediastinal and hilar contours are within normal limits. Bony thorax no acute abnormality. Impression: No acute cardiopulmonary abnormality. Reviewed, dictated and finalized at location P. URY CRACKING TESTER Impression: No acute cardiopulmonary abnormality.
--- NOTE | 2025-04-22 17:11 | ECG_ITS ---
Test Date: 2025-04-22 17:21:59 Measurements Intervals [place] Rate: 55 P: 47 CT: 169 QRS: 52 QRSD: 92 T: 15 QT: 426 QTc: 411 Interpretive Statements SINUS BRADYCARDIA OTHERWISE NORMAL ELECTROCARDIOGRAM No previous ECG available for comparison Electronically Signed On 04-23-2025 07:50:56 ROSS FURNACE OPERATOR by Carmine Varner M.D.
[2025-04-22 17:12] VITALS: BP 124/74; PULSE 56; RESP 16; TEMP 35.9; O2SAT 100
[2025-04-22 18:11] VITALS: BP 153/99; PULSE 77; RESP 20; O2SAT 100
--- OUTSIDE RECORDS SUMMARY | 2025-04-22 18:22 | XMS_ITS | Clinical Summary ---
Author Organization [facility] Address [address] [place] [address] Care Team Providers Care Sheeter Waxer Operator Name Role Phone Sami Dong Primary Care Provider [phone] Source Comments [facility],non-owned Affiliates and Associated Physician Practices is amultiple site organization consisting of ambulatory clinics and hospital sitesin [place], [place], [place] and [place]. This disclosure is being madepursuant to the Care Everywhere program and may not contain all information available regarding this patient. Last updated 18.[facility] Allergies Active Allergy Reactions Criticality Noted Date Comments Kash Inhibitors Anaphylaxis High 05/19/2012 Baclofen Rash Medium 01/29/2023 Banana Angioedema,Other High 01/29/2023 Reaction: FACIAL SWELLING Fnskwdvxni-Xaghzyh-Yne feine Swelling Medium 05/20/2017 Cefazolin Rash,Angioedema High 10/30/2015 Very questionable as reaction happened hours later Contrast-Iodinated Agents For Ct/Other Anaphylaxis,Rash,Ester rtness of Breath High 02/20/2017 Shortness of breath Hydromorphone Itching 09/27/2016 Can take w/ benadryl Erythromycin Shortness of Breath High 05/19/2012 Chest pain Fentanyl Itching Low 05/04/2019 Can take w/ Benadryl Vzmstcaytl-Hyyzggq-Cba feine Swelling 05/20/2017 Hydromorphone-Bupivaca ine-Nacl Itching Medium 09/27/2016 Can take w/ benadryl Sumatriptan Swelling 03/26/2017 Morphine Itching 09/27/2016 Can take w/ benadryl Nsaids GI Discomfort 05/08/2024 HX of ULCERS Tramadol Itching 06/24/2024 Can take with Benadryl Medications * This document contains information received from the source organization and may not represent a complete record from that organization. * Be aware that medications may not be up to date on this document. Alwaysverify current medications with the patient. vitamin D (CHOLECACIFEROL ) 5000 UNITS capsuleIndicati ons:Vitamin D Deficiency Take 1 (one) capsule by mouth once daily Reasons: Vitamin D Deficiency Active amitriptyline (ELAVIL) 25 MG tabletIndicatio ns:Depression Take 4 (four) tablets by mouth at bedtime Reasons: Depression 08/25/19 19 Active traZODone (DESYREL) 150 MG tabletIndicatio ns:Insomnia,Bib or Depressive Disorder Take 1 (one) tablet by mouth at bedtime Reasons: Major Depressive Disorder, Trouble Sleeping 09/10/19 19 Active sucralfate (Carafate) 1 GM/10ML suspensionIndic ations:Gastric Ulcer Take 5 mL by mouth 3 times daily before meals Reasons: Stomach Ulcer Active hyoscyamine (Levsin SL) 0.125 MG sublingual tablet Dissolve 1 (one) tablet under the tongue every 4 hours as needed 01/30/20 22 Active amphetamine-dex troamphetamine (Adderall) 30 MG tablet TAKE 1 TABLET BY MOUTH TWICE A DAY SECOND DOSE BY 3PM *DNF 01/11/22* 01/12/20 22 Active acetaminophen (Tylenol) 500 MG tablet Take 2 (two) tablets by mouth every 6 hours as needed Active ALPRAZolam (Xanax) 1 MG tablet Take 1 (one) tablet by mouth 3 times daily 08/07/19 23 Active Calcium Carb-Cholecalci ferol (Calcium/Vitami n D) 600-400 MG-UNIT TABS Take 2 tablets by mouth once daily CHEWS Active dicyclomine (Bentyl) 10 MG capsule Take 1 (one) capsule by mouth 3 times daily TAKES BID before Meals Active Multiple Vitamin (Multi-Vitamin) TABS Take 1 (one) tablet by mouth once daily Active omeprazole (PriLOSEC) 40 MG capsule Take 1 (one) capsule by mouth daily before breakfast 90 capsule 1 08/16/19 23 Active hydrOXYzine HCl (Atarax) 50 MG tablet TAKE 1 TABLET BY MOUTH AT BEDTIME 1 HOUR BEFORE BED 02/13/20 24 Active gabapentin (Neurontin) 400 MG capsule Take 1 (one) capsule by mouth 01/24/20 24 Active ondansetron, disintegrating, (Zofran ODT) 4 MG tablet Take 1 (one) tablet by mouth every 6 hours as needed for Nausea/Vomiting Allow tablet to dissolve on the tongue 12 tablet 04/28/20 24 Active Additional Information Patient not taking.Reported on 03/24/2025 docusate sodium (Colace) 100 MG capsule Take 1 (one) capsule by mouth 2 times daily as needed for Constipation (relief of difficult bowel movements) 30 capsule 06/25/19 25 Active polyethylene glycol 3350 (Miralax) 17 g packet Take 17 (seventeen) g by mouth once daily as needed for Constipation 06/25/19 25 Active Additional Information Patient not taking.Reported on 03/24/2025 docusate sodium (Colace) 100 MG capsule Take 1 (one) capsule by mouth 2 times daily 60 capsule 12/01/19 25 Active Additional Information Patient not taking.Reported on 03/24/2025 polyethylene glycol 3350 (Miralax) 17 g packet Take 17 (seventeen) g by mouth once daily as needed for Constipation 12/01/19 25 Active Additional Information Patient not taking.Reported on 03/24/2025 HYDROcodone-kash taminophen (Dixon) 5-325 MG tabletIndicatio ns:Right groin pain Take 1 (one) tablet by mouth every 6 hours as needed for Pain 20 tablet 12/01/19 25 Active Additional Information Patient not taking.Reported on 03/24/2025 traMADol (Ultram) 50 MG tablet Take 1 (one) tablet by mouth every 6 hours as needed for Pain 12 tablet 12/15/19 25 Active Additional Information Patient not taking.Reported on 03/24/2025 amLODIPine (Norvasc) 10 MG tablet Take 1 (one) tablet by mouth once daily for high blood pressure 90 tablet 01/30/20 25 Active nebivolol (Bystolic) 5 MG tablet Take 1 (one) tablet by mouth once daily 90 tablet 01/30/20 25 Active albuterol inhaler (ProAir RespiClick) 108 (90 Base) MCG/ACT inhalerIndicati ons:Reversible Obstructive Airway Disease INHALE 1 PUFF BY MOUTH EVERY 6 HOURS NEEDED Reasons: Reversible Disease of Blockage in Breathing Passages 1 Each 5 03/24/20 25 Active fluconazole (Diflucan) 150 MG tablet Take one tablet by mouth. May repeat after 72 hours if symptoms persist. 2 tablet 03/24/20 25 Active Albuterol Sulfate (ProAir RespiClick) 108 (90 Base) MCG/ACTIndicati ons:Reversible Obstructive Airway Disease INHALE 1 PUFF BY MOUTH EVERY 6 HOURS NEEDED Reasons: Reversible Disease of Blockage in Breathing Passages 1 Each 5 05/29/20 24 025 Discontinu ed(Reorder ) amoxicillin-cla vulanate (Augmentin) 875-125 MG tablet Take 1 (one) tablet by mouth every 12 hours for 10 days 20 tablet 03/24/20 25 025 Active Problems Problem Noted Date Diagnosed Date S/P right inguinal hernia repair 05/08/2024 Right groin pain 05/08/2024 Gastrointestinal hemorrhage associated with kyleigh naif ulcer 02/07/2022 Adjustment disorder with mix ed disturbance of emotions and conduct 01/24/2022 Panic disorder 01/24/2022 Anxiety disorder, unspecified 01/24/2022 Insomnia due to mental disorder 01/24/2022 Fever in other diseases 01/24/2022 Overview (03/03/2025): IMO 03/03/2025 Abdominal pain, unspecified abdominal location 0 01/24/2022 Anxiety disorder 01/24/2022 Right ureteral stone 01/09/2022 Overview (04/28/2024): Added automatically from request for surgery [id number] Acute upper GI bleed 12/30/2021 Anastomotic ulcer S/P gastric bypass 12/30/2021 Attention deficit hyperactiv ity disorder (ADHD), combined type 12/30/2021 Chronic anxiety 12/30/2021 Mild malnutrition 12/30/2021 Colon polyp 12/29/2021 Observation after surgery 12/29/2021 S/P gastric bypass 12/29/2021 DDD (degenerative disc disease), cervical 2019 Overview (11/17/2019): Status post ACDF with Dr. Fong Encounter for other specified special examinatio ns 07/27/2019 Irritable bowel syndrome with constipation 07/14 Abdominal pain 05/04/2019 Pseudoarthrosis of cervical spine 10/13/2018 Exposure to chemical inhalation 02/19/2017 Dysphagia 10/26/2015 Anemia 05/29/2012 Metrorrhagia 01/21/2012 Sickle cell trait Varicose vein of leg Overview (05/29/2012): thighs Iron deficiency anemia Vitamin D deficiency HTN (hypertension) Resolved Problems Problem Noted Date Diagnosed Date Resolved Date Intentional benzodiazepine overdose 01/30/2022 02/03/2025 Current severe episode of ma gary depressive disorder without psychotic features, unspecified whether recurrent 01/23/2022 01/24/2022 Non morbid obesity 11/21/2017 2 Sore throat 02/19/2017 11/17/2019 Morbid obesity 11/21/2017 Pancreatitis due to biliary obstruction 11/17/2019 Overview (05/29/2012): biliary stent- failed Asthma 07/31/2012 Overview (05/29/2012): with seasonal allergies Encounters Date Type Department Care Team Description 04/01/2025 Telephone [facility] [address] [place] [address] Sahil Booth, FURNITURE ARRANGER-CT SCAN SPECIAL PROCEDURES TECHNOLOGIST Update; Sore Throat; Ear Pain 03/24/2025 11:40 AM CDT Office Visit [facility] [address] [place] [address] Sahil Booth, FURNITURE ARRANGER-CT SCAN SPECIAL PROCEDURES TECHNOLOGIST Strep throat (Primary Dx); Sore throat 03/24/2025 Telephone [facility] [address] [place] [address] Sahil Booth, FURNITURE ARRANGER-CT SCAN SPECIAL PROCEDURES TECHNOLOGIST Medication Request 02/09/2025 Telephone [facility] [address] [place] [address] Sami Dong DO Medication Prior Auth Request 02/04/2025 Telephone [facility] [address] [place] [address] Miki Razo APRN-CNP Follow-up 02/04/2025 Travel 02/04/[address] [address] Sami Dong DO Medication Problem 02/03/2025 9:20 AM CDT Office Visit [facility] [address] [place] [address] Miki Razo APRN-CNP Pre-op examination (Primary Dx); Encounter for screening mammogram for malignant neoplasm of breast; Vitamin D deficiency; Obesity (BMI 30.0-34.9); Encounter for weight management; Hypertension, unspecified type; Anxiety disorder, unspecified type; Attention deficit hyperactivity disorder (ADHD), combined type; Insomnia due to mental disorder; DDD (degenerative disc disease), cervical; History of inguinal hernia repair; Screening for diabetes mellitus; Lipid screening; Screening for thyroid disorder 01/29/2025 Refill [facility] [address] [place] [address] Sami Dong DO MEDICATION REFILL from Last 3 Months Family History Medical History Relation Name Comments Diabetes Father Gout Father Hypertension Father Blood Clots Mother Hypertension Mother Relation Name Status Comments Brother 1 Alive Brother 2 Alive Father Alive Mother Alive Social History Tobacco Use Types Packs/Day Years Used Date Smoking Tobacco: Never Smokeless Tobacco: Never Tobacco Cessation:Counseling Given: Not Answered Alcohol Use Standard Drinks/Week Comments No 0 (1 standard drink = 0.6 oz pur e alcohol) AUDIT-C Answer Date Recorded Q1: How often do you have a drink containing alcohol? Never 11/30/2024 Q2: How many drinks containi ng alcohol do you have on a typical day when you are drinking? Patient does not drink Q3: How often do you have si x or more drinks on one occasion? Never 11/30/2024 PHQ-2 Answer Date Recorded Patient Health Questionnaire-2 Score 0 03/24/2025 Comments No Sex and Gender Information Value Date Recorded Sex Assigned at Not on file Legal Sex Female 10:46 AM DIESEL SCOOP OPERATOR Gender Identity Not on file Sexual Orientation Not on file Last Filed Vital Signs Vital Sign Reading Time Taken Comments Blood Pressure 136/84 03/24/2025 11:48 AM CDT Pulse 97 02/03/2025 9:45 AM CDT Temperature 36.6 C (97.9 F) 03/24/2025 11:48 AM CDT Respiratory Rate 16 11/30/2024 5:15 PM CDT Oxygen Saturation 100% 02/03/2025 9:45 AM CDT Inhaled Oxygen Concentration 21% 10/05/2016 8 :24 AM CDT Weight 78.9 kg (174 lb) 03/24/2025 11:48 AM CDT Height 157.5 cm (5' 2.01) 03/24/2025 11:48 AM C DT Body Mass Index 31.82 03/24/2025 11:48 AM CDT Plan of Treatment Upcoming Encounters Date Type Department Care Team (Late st Contact Info) Description 05/05/2025 9:40 AM DIESEL SCOOP OPERATOR Office Visit [facility] [address] [place] [address] Miki Razo, FURNITURE ARRANGER-CT SCAN SPECIAL PROCEDURES TECHNOLOGIST [address] [place] [id number] Health Maintenance Due Date Last Done Comments COLOGUARD (AGES 45-75) - COLON CA SCREENING 1967 CT COLONOGRAPHY - COLON CA SCREENING 1967 FIT - COLON CA SCREENING 1967 FLEX SIG - COLON CA SCREENING 1967 HIV SCREENING 1982 HEPATITIS C SCREENING 02/01/1985 DTAP/TDAP/TD VACCINES (1 - Tdap) 1986 HEPATITIS B VACCINE (1 of 3 - 19+ 3-dose series) 1986 PAP SMEAR 02/07/1988 Cervical Cancer Screening 1997 PAP with HPV 1997 PNEUMOCOCCAL VACCINE 50+ (1 of 1 - PCV) 2017 ZOSTER VACCINE (1 of 2) 2017 LIPID TESTING 09/18/2023 09/17/2018, /01/2013, 05/19/2012 COVID-19 VACCINE ( - season) 2025 INFLUENZA VACCINE (#1) 2025 MEDICARE AWV 12 MONTHS 04/28/2025 04/28/2024 MAMMOGRAM 02/03/2026 08/02/2017, 08/2017, 06/05/2017, Additional history exists Postponed from 08/03/2019 (Patient Refused) SCREENING FOR DIABETES 12/01/2027 , 05/04/2024, 04/28/2024, Additional history exists COLON MONITORING 07/20/2032 07/20/2022, , 05/08/2019, Additional history exists COLONOSCOPY - COLON CA SCREENING 07/20/2032 07/20/2022, 07/20/2022, 05/08/2019, Additional history exists Colorectal Cancer Screening 07/20/2032 DEPRESSION SCREENING Completed 02/03/2025, 01/30/2024, 08/15/2022, Additional history exists HIB VACCINE Aged Out No longer eligi ble based on patient's age to complete this topic HPV VACCINE Aged Out No longer eligi ble based on patient's age to complete this topic MENINGOCOCCAL (Group B) VACCINE SHARED DECISION-MAKING Aged Out No longer eligible based on patient's age to complete this topic MENINGOCOCCAL GROUPS A/C/Y/W VACCINE Aged Out No longer eligible based on patient's age to complete this topic Goals Goal Patient Goal Type Associated Problems Recent Progress Patient-Stated? Author Blood Pressure < 140/90 Blood Pressure 136/84(2024 11:48 AM CDT) No [employer], [employer] Implanted Type Area Government Affairs Specialist Device Identifier Shelf Expiration Date Model / Serial / Lot Mesh Srg Progrip [id number] Slf Fx Rt 70% Implanted:Qty: 1 on 11/30/2024 by Michelle Haines DO at [facility] Right: Groin [employer] 11/30/2026 [id number] / / [id number] Procedures Procedure Name Priority Date/Time Associated Diagnosis Comments EYE EXAM 03/03/2025 EYE EXAM 02/18/2025 EKG 12-LEAD Routine 02/10/2025 4:48 PM CDT Pre-op examination BASIC METABOLIC PANEL (CALCIUM TOTAL) STAT 11/30/2024 1:06 PM CDT S/P gastric bypass Hypertension, unspecified type COLONOSCOPY 07/20/2022 LIPID PROFILE Routine 09/17/2018 8:28 AM CDT Physical exam, annual MAMMOGRAPHY ORDER Routine 08/02/2017 from Last 3 Months or Most Recently Relevant to Health Maintenance Results * EYE EXAM (03/03/2025) Anatomical Region Laterality Modality Other 03/03/2025 Narrative 03/03/2025 Ordered by an unspecified provider. us Scanned Document SCANNING ONLY Final Result * EYE EXAM (02/18/2025) Anatomical Region Laterality Modality Other 02/18/2025 Narrative 02/18/2025 Ordered by an unspecified provider. us Scanned Document SCANNING ONLY Final Result * EKG 12-LEAD (02/10/2025 4:48 PM CDT) Miki Razo FURNITURE ARRANGER-CT SCAN SPECIAL PROCEDURES TECHNOLOGIST ECG ORDERABLES Daphney l Result * BASIC METABOLIC PANEL (CALCIUM TOTAL) (11/30/2024 1:06 PM CDT) Glucose 85 70 - 99 mg/dL 11/30/2024 1:33 PM CDT [facility] Sodium 141 136 - 145 mmol/L 11/30/2024 1:33 PM CDT [facility] Potassium 3.7 3.5 - 5.1 mmol/L 11/30/2024 1:33 PM CDT [facility] Chloride 105 98 - 107 mmol/L 11/30/2024 1:33 PM CDT [facility] CO2 27 22 - 29 mmol/L 11/30/2024 1:33 PM CDT [facility] Calcium 9.4 8.4 - 10.4 mg/dL 11/30/2024 1:33 PM CDT [facility] Anion Gap 9 6 - 16 mmol/L 11/30/2024 1:33 PM CDT [facility] BUN 17 7 - 26 mg/dL 11/30/2024 1:33 PM CDT [facility] Creatinine 0.73 0.57 - 1.11 mg/dL 11/30/2024 1:33 PM CDT [facility] eGFR by CKD-EPI >90 >=90 mL/min/1.7 3 m2 11/30/2024 1:33 PM CDT [facility] Blood BLOOD SPECIMEN / Unknown Venipuncture / Unknown 11/30/2024 1:06 PM CDT 11/30/2024 1:16 PM CDT Nicolás Bey MD LAB - CHEMISTRY ORDERABLES Final Result [facility] [address] [place] [address] * COLONOSCOPY (07/20/2022) 07/20/2022 Narrative 07/20/2022 Ordered by an unspecified provider. Scanned Document SCANNING ONLY Final Result * (ABNORMAL) LIPID PROFILE (09/17/2018 8:28 AM CDT) Cholesterol 140 <200 mg/dL [facility] INSURANCE BILL Triglycerides 41 <150 mg/dL [facility] INSURANCE BILL HDL Cholesterol 85 >40 mg/dL [facility] INSURANCE BILL VLDL Calculated 8(L) >=30 mg/dL [facility] INSURANCE BILL LDL Calculated 47 <130 mg/dL [facility] INSURANCE BILL Comment:FASTING Blood BLOOD SPECIMEN / Unknown 09/17/2018 8:28 AM CDT 09/17/2018 Narrative Resulting Agency Comment Lab Testing performed at: [facility] [place] [id number] [place] Sami Dong DO LAB - CHEMISTRY ORDERABLES Fin al Result [facility] INSURANCE BILL [address] [place] [address] * MAMMOGRAPHY ORDER (08/02/2017) Anatomical Region Laterality Modality Mammography Sami Iker DO MAMMO ORDERABLES Final Result from Last 3 Months or Most Recently Relevant to Health Maintenance Insurance [facility] MEDICARE [place] [id number] [facility] Advance Directives * Full Code (Latest Code Status on File) Date Activated Date Inactivated Comments 01/29/2022 7:16 PM 02/01/2022 12:47 PM * Full Code Date Activated Date Inactivated Comments 01/29/2022 4:04 PM 01/29/2022 7:16 PM * Full Code Date Activated Date Inactivated Comments 01/24/2022 11:41 PM 01/29/2022 4:04 PM * Full Code Date Activated Date Inactivated Comments 01/23/2022 10:34 PM 01/24/2022 9:31 PM * Full Code Date Activated Date Inactivated Comments 05/05/2019 10:38 AM 05/08/2019 5:47 PM Care Teams Sheeter Waxer Operator Relationship Specialty Start Date End Date Sami Dong DO [address] [place] [id number] PCP - General Family Medicine 01/12/16
--- OUTSIDE RECORDS SUMMARY | 2025-04-22 18:22 | XMS_ITS | Encounter Summary ---
Author Organization [facility] Health Address [address] [address] Care Team Providers Care Molecular Biology Director Name Role Phone Tammi Abbasi RN Unavailable [phone] Sami Dong DO Primary Care Provider [phone] Encounter Details Date Type Department Care Team (Late st Contact Info) Description 11/14/2016 [facility] Ronan Finley MD [address] [place] [address] Social History Tobacco Use Types Packs/Day Years Used Date Smoking Tobacco: Never Smokeless Tobacco: Never Alcohol Use Standard Drinks/Week Comments No 0 (1 standard drink = 0.6 oz pur e alcohol) Comments No Sex and Gender Information Value Date Recorded Sex Assigned at Not on file Legal Sex Female 10:46 AM HALF SECTION IRONER Gender Identity Not on file Sexual Orientation Not on file documented as of this encounter Functional Status * Is person deaf or have serious hearing difficulty? Answer Date of Assessment Author No 09/27/2016 4:00 PM INGAT Juliocesar Mcguire RN * Is person blind or have serious difficulty seeing? Answer Date of Assessment Author No 09/27/2016 4:00 PM INGAT Juliocesar Mcguire RN * Does person have serious difficulty walking/climbing stairs? Answer Date of Assessment Author No 09/27/2016 4:00 PM Juliocesar Garcia RN * Does person have difficulty dressing/bathing? Answer Date of Assessment Author No 09/27/2016 4:00 PM CDT Juliocesar Mcguire RN * Does person have difficulty doing errands alone? Answer Date of Assessment Author No 09/27/2016 4:00 PM INGAT Juliocesar Mcguire RN documented as of this encounter Mental Status * Does person have difficulty concentrating/remembering/making decisions? Answer Entry Date Author No 09/27/2016 4:00 PM CDT Juliocesar Mcguire RN documented in this encounter Plan of Treatment Upcoming Encounters Date Type Department Care Team (Late st Contact Info) Description 05/05/2025 9:40 AM HALF SECTION IRONER Office Visit [facility] - Family Medicine [address] [place] [address] Miki Razo APRN-QUALITY CONTROL CHECKER [address] [place] [phone] documented as of this encounter Goals Goal Patient Goal Type Associated Problems Recent Progress Patient-Stated? Author Blood Pressure < 140/90 Blood Pressure 136/84(2024 11:48 AM CDT) No Elmer Plunkett documented as of this encounter Visit Diagnoses Not on filedocumented in this encounter Care Teams Molecular Biology Director Relationship Specialty Start Date End Date Sami Dong DO [address] [place] [phone] PCP - General Family Medicine 01/12/16 Tammi Abbasi, JULIET Senior Controller 11/04/15 05/04/19 documented as of this encounter
--- OUTSIDE RECORDS SUMMARY | 2025-04-22 18:22 | XMS_ITS | Encounter Summary ---
Author Organization [facility] Health Address [address] [place] [address] Care Team Providers Care Retail Support Manager Name Role Phone Tammi Abbasi RN Unavailable Sami Dong DO Primary Care Provider [phone] Encounter Details Date Type Department Care Team (Late st Contact Info) Description 11/12/2016 [facility] Darian Myers MD [address] [place], [place] [id number] Social History Tobacco Use Types Packs/Day Years Used Date Smoking Tobacco: Never Smokeless Tobacco: Never Alcohol Use Standard Drinks/Week Comments No 0 (1 standard drink = 0.6 oz pur e alcohol) Comments No Sex and Gender Information Value Date Recorded Sex Assigned at Not on file Legal Sex Female 10:46 AM GREEN CHAIN MARKER Gender Identity Not on file Sexual Orientation Not on file documented as of this encounter Functional Status * Is person deaf or have serious hearing difficulty? Answer Date of Assessment Author No 09/27/2016 4:00 PM CDT Juliocesar Mcguire RN * Is person blind or have serious difficulty seeing? Answer Date of Assessment Author No 09/27/2016 4:00 PM INGAT Juliocesar Mcguire RN * Does person have serious difficulty walking/climbing stairs? Answer Date of Assessment Author No 09/27/2016 4:00 PM INGAT Juliocesar Mcguire RN * Does person have difficulty dressing/bathing? [...] st Contact Info) Description 05/05/2025 9:40 AM GREEN CHAIN MARKER Office Visit [facility] - Family Medicine [address] [place] [address] Miki Razo APRN-FAT PRESSROOM WORKER [address] [place] [address] documented as of this encounter Goals Goal Patient Goal Type Associated Problems Recent Progress Patient-Stated? Author Blood Pressure < 140/90 Blood Pressure 136/84(2024 11:48 AM CDT) No Elmer Plunkett documented as of this encounter Visit Diagnoses Not on filedocumented in this encounter Care Teams Retail Support Manager Relationship Specialty Start Date End Date Sami Dong DO [address] [place] [phone] PCP - General Family Medicine 01/12/16 Tammi Abbasi, JULIET Pre Press Manager 11/04/15 05/04/19 documented as of this encounter
--- OUTSIDE RECORDS SUMMARY | 2025-04-22 18:23 | XMS_ITS | Clinical Summary ---
Author Organization [facility] Address [address] [place] [address] Phone Care Team Providers Care Sheet Ironworker Name Role Phone Sami Dong Primary Care Provider [phone] Allergies Active Allergy Reactions Criticality Noted Date Comments Kash Inhibitors Anaphylaxis High 01/18/2012 Pkdgabfims-Jxwlcgf-Yqso eine Swelling Medium 05/20/2017 Cefazolin Angioedema High 10/30/2015 Erythromycin Palpitations Medium 01/18/2012 Fentanyl Itching Low 05/04/2019 Can take w/ Benadryl Hydromorphone Itching Medium 09/27/2016 Can take w/ benadryl Iodinated Contrast Media Anaphylaxis High 12/15/2019 Metrizamide Shortness of Breath/Wheezing High 02/20/2017 Morphine Itching Medium 09/27/2016 Can take w/ benadryl Sumatriptan Swelling Medium 03/26/2017 Medications amLODIPine (NORVASC) 5 mg Oral tablet Take 10 mg by mouth daily . Active multivitamin (DAILY-JEANNETTE) Oral tablet Take 1 Tab by mouth daily. Active BIOTIN ORAL Take by mouth. Act rubin calcium carbonate + vitamin D (CALTRATE+D) 600 mg(1,500mg) -400 unit Tablet Take 2 Tabs by mouth daily. Active albuterol HFA 90 mcg inhaler Take 2 Puffs by inhalation every 6 hours as needed for Shortness of Breath. Active dextroamphetami ne-amphetamine (ADDERALL) 10 mg tablet Take 30 mg by mouth 2 times daily . Active ALPRAZolam (XANAX) 1 mg tablet Take 1 Tablet (1 mg) by mouth 3 times daily as needed for Anxiety. 100 Tablet 8 Active ondansetron (ZOFRAN) 4 mg Tablet Take 1 Tablet (4 mg) by mouth every 8 hours as needed for Nausea/Emesis. 15 Tablet 8 Active amitriptyline (ELAVIL) 25 mg tablet Take 75 mg by mouth daily at bedtime. Active acetaminophen (TYLENOL) 500 mg tablet Take 1,000 mg by mouth every 6 hours as needed. Active dextromethorpha n-guaiFENesin (MUCINEX DM) 30-600 mg Tablet Sustained Release 12HR Take 1 Tablet by mouth every 12 hours. Active gabapentin (NEURONTIN) 300 mg capsule Take 300 mg by mouth 2 times daily. Active Active Problems Problem Noted Date Diagnosed Date Pseudoarthrosis of cervical spine 10/13/2018 HNP (herniated nucleus pulposus), cervical 12/23 Metrorrhagia 01/21/2012 Encounters Date Type Department Care Team Description 03/31/2025 External Device Data ST[facility] ABSTRACTION Provider, Abstract 03/30/2025 External Device Data [facility] ABSTRACTION Provider, Abstract from Last 3 Months Family History Medical History Relation Name Comments Breast Cancer Maternal Aunt Ovarian Cancer Mother Relation Name Status Comments Maternal Aunt Mother Social History Tobacco Use Types Packs/Day Years Used Date Smoking Tobacco: Never Smokeless Tobacco: Never Tobacco Cessation:Counseling Given: Not Answered Alcohol Use Standard Drinks/Week Comments Not Currently 0 (1 standard drink = 0.6 oz pur e alcohol) Comments No Sex and Gender Information Value Date Recorded Sex Assigned at Not on file Legal Sex Female 4:41 AM BANK VAULT CLERK Gender Identity Not on file Sexual Orientation Not on file Occupation Industry Job Start Date Job End Date Not on file Not on file Not on file Not on file Last Filed Vital Signs Vital Sign Reading Time Taken Comments Blood Pressure 139/97 05/13/2024 10:23 AM BANK VAULT CLERK Pulse 82 05/13/2024 10:23 AM BANK VAULT CLERK Temperature 37 C (98.6 F) 12/29/2019 7:36 AM CDT Respiratory Rate 16 12/29/2019 7:36 AM CDT Oxygen Saturation 93% 05/13/2024 10:23 AM BANK VAULT CLERK Inhaled Oxygen Concentration - - Weight 74.8 kg (165 lb) 05/13/2024 10:23 AM BANK VAULT CLERK Height 157.5 cm (5' 2) 05/13/2024 10:23 AM BANK VAULT CLERK Body Mass Index 30.18 05/13/2024 10:23 AM BANK VAULT CLERK Plan of Treatment Health Maintenance Due Date Last Done Comments Pre-Diabetes and Diabetes Screening 1965 DTAP/TDAP/TD VACCINES (1 - Tdap) 1986 HEPATITIS B VACCINES (1 of 3 - 19+ 3-dose series) 1986 FIT-DNA Q 3 years 02/07/2012 FIT/FOBT Q 1 year 02/07/2012 Flex Sig/CT Colonography Q 5 years 02/07/2012 ZOSTER VACCINE (1 of 2) 2017 BREAST CANCER SCREENING 06/05/2018 06/05/2017, 04/29 INFLUENZA VACCINE (#1) 2025 COLORECTAL SCREENING 07/20/2032 07/20/2022, 07/20/2022, 07/20/2022, Additional history exists Colorectal Cancer Screening 07/20/2032 Medical Devices Implanted Type Area Partnership Development Manager Device Identifier Shelf Expiration Date Model / Serial / Lot Hemostatic Surgifoam [id number] 1973 - [id number] Implanted:Qty : 1 on 12/23/2017 by Hussain Dixon MD at [facility] Hemostatic N/A: Spine Cervical Anterior J[employer]J- [employer] [id number] / / [id number] Hemostatic Surgifoam 1gm 1977 - [id number] Implanted:Qty : 1 on 10/13/2018 by Hussain Dixon MD at [facility] Hemostatic N/A: Spine Cervical Anterior J[employer]J- [employer] 03/18/20221977 / / [id number] Description:used with thromb in PRN Allgrft Vivigen Matrix 5ml Bl-1500-002 - [id number] Implanted:Qty : 1 on 12/23/2017 by Hussain Dixon MD at [facility] Tissue N/A: Spine Cervical Anterior LIFENET 05/11/2018 BL-1500-0 02 / [id number] / Vertigraft Vg2 Cervical 7d [id number] - [id number] Implanted:Qty : 1 on 12/23/2017 by Hussain Dixon MD at [facility] Tissue N/A: Spine Cervical Anterior LIFENET 04/04/2022 [id number] / [id number] / Infuse Protein Kit [id number] - [id number] Implanted:Qty : 1 on 10/13/2018 by Hussain Dixon MD at [facility] Tissue N/A: Spine Cervical Anterior [employer]- SOFAMOR DANEK 04/02/2019 [id number] / / [id number] H Description:REQ#[id number] Vertigraft Vg2 Cervical 7d [id number] - [id number] Implanted:Qty : 1 on 10/13/2018 by Hussain Dixon MD at [facility] Tissue N/A: Spine Cervical Anterior LIFENET 01/24/2023 [id number] / [id number] / Description:LEVEL 6-7 REQ#[id number] Explanted Type Area Partnership Development Manager Device Identifier Shelf Expiration Date Model / Serial / Lot Plate Uniplate 2lvl 36mm 1897-22-036 - [id number] Implanted:Qty: 1 on 12/23/2017 by Hussain Dixon MD at [facility] Explanted:Qty: 1 on 10/13/2018 by Hussain Dixon MD at [facility] Plate N/A: Spine Cervical Anterior J&J- [employer] 1897-22-0 36 / / LOAD# [id number] 12/05/17 Description:all Depuy spinal hardware was processed on requisition,[id number]. Plate Uniplate 1lvl 18mm 1897-21-018 - Ssterilized September 29 2018 Implanted:Qty: 1 on 10/13/2018 by Hussain Dixon MD at [facility] Explanted:Qty: 1 on 12/28/2019 at [facility] Plate N/A: Spine Cervical Anterior J&J- [employer] 1897-21-0 18 / STERILIZE D SEPTEMBER 29 2018 / LOAD 111 Description:All Depuy spinal hardware was processed on requisition,[id number]. Screw Uniplate Sd 14mm 1897-07-014 - [id number] Implanted:Qty: 3 on 12/23/2017 by Hussain Dixon MD at [facility] Explanted:Qty: 3 on 10/13/2018 by Hussain Dixon MD at [facility] Screw N/A: Spine Cervical Anterior J&J- [employer] 1897-07-0 14 / / LOAD# 25 12/05/17 Screw Uniplate Sd 14mm 1897-07-014 - Ssterilized September 29 2018 Implanted:Qty: 2 on 10/13/2018 by Hussain Dixon MD at [facility] Explanted:Qty: 2 on 12/28/2019 at [facility] Screw N/A: Spine Cervical Anterior J&J- [employer] 1896-12-0 14 / STERILIZE D SEPTEMBER 29 2018 / LOAD 111 Vertigrft Cerv 7in Lordosis [id number] - [id number] Implanted:Qty: 1 on 12/23/2017 by Hussain Dixon MD at [facility] Explanted:Qty: 1 on 10/13/2018 by Hussain Dixon MD at [facility] Tissue N/A: Spine Cervical Anterior LIFENET 05/15/2022 [id number] / [id number] / Description:ALL LIFENET PROD UCT REORDERED UNDER REQ#[id number] Procedures Procedure Name Priority Date/Time Associated Diagnosis Comments MAMMO DIAGNOSTIC UNI RIGHT W OR WO CAD Routine 06/05/2017 3:37 PM BANK VAULT CLERK Abnormal mammogram from Last 3 Months or Most Recently Relevant to Health Maintenance Results * (ABNORMAL) MAMMO DIAGNOSTIC UNI RIGHT W OR WO CAD (06/05/2017 3:37 PM BANK VAULT CLERK) Anatomical Region Laterality Modality Breast Right Mammography 06/05/2017 3:37 PM BANK VAULT CLERK Impressions 06/05/2017 4:56 PM BANK VAULT CLERK IMPRESSION: Suspicious right breast mass at 10:00, 8 cm from the nipple. Biopsy is recommended. BI-RADS 4: Suspicious. Dictated from: [facility] [place] Narrative 06/05/2017 4:56 PM BANK VAULT CLERK EXAM: RIGHT DIGITAL DIAGNOSTIC MAMMOGRAPHY WITH CAD AND LIMITED RIGHT BREAST ULTRASOUND EXAM DATE: 06/05/2017 INDICATION: The patient was recalled from her baseline screening mammogram performed on 04/29/2017 for additional imaging evaluation of a lateral right breast asymmetry. COMPARISON: 04/29/2017 BREAST COMPOSITION: Scattered fibroglandular densities. FINDINGS: Full-field right digital mammography in the CC and ML views as well as spot compression right CC were obtained. CAD was utilized. With additional imaging the lateral right breast asymmetry persists. On the lateral view the asymmetry is felt to be in the upper aspect of the right breast. Additional imaging with ultrasound was performed. RIGHT BREAST ULTRASOUND: Targeted real-time ultrasound was performed on the upper outer quadrant of the right breast. At 10:00, 8 cm from the nipple there is an irregular hypoechoic 7 x 4 mm mass. There is no increased through transmission. This mass is suspicious. Biopsy is advised. Imaging of the right axilla is unremarkable. Procedure Note Irene Ryan MD - 06/05/2017 EXAM: RIGHT DIGITAL DIAGNOSTIC MAMMOGRAPHY WITH CAD AND LIMITED RIGHT BREAST ULTRASOUND EXAM DATE: 06/05/2017 INDICATION: The patient was recalled from her baseline screening mammogram performed on 04/29/2017 for additional imaging evaluation of a lateral right breast asymmetry. COMPARISON: 04/29/2017 BREAST COMPOSITION: Scattered fibroglandular densities. FINDINGS: Full-field right digital mammography in the CC and ML views as well as spot compression right CC were obtained. CAD was utilized. With additional imaging the lateral right breast asymmetry persists. On the lateral view the asymmetry is felt to be in the upper aspect of the right breast. Additional imaging with ultrasound was performed. RIGHT BREAST ULTRASOUND: Targeted real-time ultrasound was performed on the upper outer quadrant of the right breast. At 10:00, 8 cm from the nipple there is an irregular hypoechoic 7 x 4 mm mass. There is no increased through transmission. This mass is suspicious. Biopsy is advised. Imaging of the right axilla is unremarkable. IMPRESSION: Suspicious right breast mass at 10:00, 8 cm from the nipple. Biopsy is recommended. BI-RADS 4: Suspicious. Dictated from: [facility] Sami Dong DO MAMMO ORDERABLES Final Resul t from Last 3 Months or Most Recently Relevant to Health Maintenance Insurance [employer] Directives For more information, please contact: [phone] * Full Code (Latest Code Status on File) Date Activated Date Inactivated Comments 12/28/2019 2:21 PM 12/29/2019 12:55 PM * Full Code Date Activated Date Inactivated Comments 12/28/2019 2:20 PM 12/28/2019 2:21 PM * Full Code Date Activated Date Inactivated Comments 10/13/2018 12:36 PM 10/15/2018 1:38 PM * Full Code Date Activated Date Inactivated Comments 10/13/2018 6:20 AM 10/13/2018 12:36 PM * Full Code Date Activated Date Inactivated Comments 12/23/2017 12:17 PM 12/26/2017 2:33 PM Care Teams Sheet Ironworker Relationship Specialty Start Date End Date Sami Dong DO [address] [place] [phone] PCP - General Family Practice 04/26/17
--- OUTSIDE RECORDS SUMMARY | 2025-04-22 18:23 | XMS_ITS | Encounter Summary ---
Author Organization [facility] Address [address] [place] [address] Care Team Providers Care Meter Readers Supervisor Name Role Phone Unknown, Provider Primary Care Provider Unavaila Anthony Patel MD Primary Care Provider Tammi Abbasi RN Unavailable Sami Dong DO Primary Care Provider [phone] Encounter Details Date Type Department Care Team (Late st Contact Info) Description 05/19/2012 [facility] Visit [facility] [address] [place] [address] Marcelina Smith MD [address] [place] [phone] Social History Tobacco Use Types Packs/Day Years Used Date Smoking Tobacco: Never Assessed Comments Unknown Sex and Gender Information Value Date Recorded Sex Assigned at Not on file Legal Sex Female 10:46 AM DIRECTOR OF CORPORATE SALES Gender Identity Not on file Sexual Orientation Not on file documented as of this encounter Plan of Treatment Upcoming Encounters Date Type Department Care Team (Late st Contact Info) Description 05/05/2025 9:40 AM DIRECTOR OF CORPORATE SALES Office Visit [facility] - Family Medicine [address] [place] [address] Miki Razo APRN-ASSISTANT PROFESSOR OF DRAMA [address] [place] [address] documented as of this encounter Visit Diagnoses Not on filedocumented in this encounter Care Teams Meter Readers Supervisor Relationship Specialty Start Date End Date Unknown, Provider PCP - General 05/11/08 07/29/13 Anthony Casey MD [address] [place] [address] PCP - General Emergency Medicine 07/30/13 01/11/16 Sami Dong DO [address] [place] [address] PCP - General Family Medicine 01/12/16 Tammi Abbasi, JULIET Adult Basic Education Manager 11/04/15 05/04/19 documented as of this encounter
--- OUTSIDE RECORDS SUMMARY | 2025-04-22 18:23 | XMS_ITS | Encounter Summary ---
Author Organization [facility] Address [address] [place] [address] Care Team Providers Care Doctor Assistant Name Role Phone Sami Dong DO Primary Care Provider [phone] Encounter Details Date Type Department Care Team (Late st Contact Info) Description 05/18/1999 Outpatient Historical [facility] Erika Mcclellan MD NO ADDRESS ON FILE Social History Tobacco Use Types Packs/Day Years Used Date Smoking Tobacco: Never Assessed Comments Unknown Sex and Gender Information Value Date Recorded Sex Assigned at Not on file Legal Sex Female 4:41 AM CLOTH TESTER Gender Identity Not on file Sexual Orientation Not on file documented as of this encounter Plan of Treatment Not on file documented as of this encounter Visit Diagnoses Not on filedocumented in this encounter Care Teams Doctor Assistant Relationship Specialty Start Date End Date Sami Dong DO [address] [place] [id number] PCP - General Family Practice 04/26/17 documented as of this encounter
--- OUTSIDE RECORDS SUMMARY | 2025-04-22 18:23 | XMS_ITS | Clinical Summary ---
Author Organization [facility] Address [address] [place] [address] Care Team Providers Care Supervisor Fur Dressing Name Role Phone Sami DongDonis OLIVAREZ Primary Care Provider Ronan Finley MD Unavailable Nicolás Vincent MD Unavailable [phone] Lakshmi Kirk MD Unavailable Allergies Active Allergy Reactions Criticality Noted Date Comments Kash Inhibitors Anaphylaxis,Swellin g,Other (See comments),Angioedem a High 01/18/2012 Reaction: FACIAL SWELLING Baclofen Rash Medium 01/29/2023 Banana Qivwus-C-Xmeurtlrcuabb . Other (See comments),Angioedem a High 01/29/2023 Reaction: FACIAL SWELLING Mrhgbzwbqe-Ssjmbcn-Kvl feine Swelling Medium 05/20/2017 Cefazolin Angioedema High 10/30/2015 Very questionable as reaction happened hours later Cefazolin Sodium Rash Medium 01/29/2023 Erythromycin Shortness of breath,Palpitations ,Chest tightness High 01/18/2012 Chest pain Fentanyl Itching Low 05/04/2019 Can take w/ Benadryl Fentanyl (Pf)-Bupivacaine-Nacl Itching Medium 09/27/2016 Can take w/ benadryl Can take w/ benadryl Hydromorphone Itching Medium 09/27/2016 Can take w/ benadryl Iodinated Contrast Media Anaphylaxis,Shortne ss of breath,Rash High 02/20/2017 Metrizamide Shortness of breath High 02/20/2017 Morphine Itching Medium 09/27/2016 Can take w/ benadryl Sumatriptan Swelling Medium 03/26/2017 Medications ALPRAZolam (XANAX) 1 mg tablet Take 1 tablet (1 mg total) by mouth 4 (four) times a day as needed for anxiety Active amitriptyline (ELAVIL) 25 mg tablet Take 1 tablet (25 mg total) by mouth nightly Active amLODIPine (NORVASC) 10 mg tablet Take 1 tablet (10 mg total) by mouth daily Active senna-docusate (PERICOLACE) 8.6-50 mg Take 1 tablet by mouth 2 (two) times a day as needed for constipation Active traZODone (DESYREL) 150 mg tablet Take 1 tablet (150 mg total) by mouth nightly Active cholecalciferol (VITAMIN D-3) 5,000 unit capsule Take 1 capsule (5,000 Units total) by mouth daily Active albuterol HFA (PROVENTIL HFA,VENTOLIN HFA,PROAIR HFA) 90 mcg/actuation inhaler Inhale 2 puffs every 6 (six) hours as needed for wheezing Active lidocaine (ASPERCREME) 4 % adhesive patch,medicated Place 1 patch on the skin daily 30 patch 12/23/19 Active sucralfate (CARAFATE) suspension 1 gram/10 mL Take 5 mL (0.5 g total) by mouth 2 (two) times a day 300 mL 01/09/20 Active Additional Information Patient not taking.Reported on 07/20/2022 lactulose solution 10 gram/15mL Take 5 mL (3.3333 g total) by mouth 2 (two) times a day 300 mL 01/09/20 Active oxyCODONE-acetamin ophen (PERCOCET) 5-325 mg per tabletIndications: Pain Take 1 tablet by mouth every 4 (four) hours as needed for pain 20 tablet 01/09/20 22 Active acetaminophen (TYLENOL) 500 mg tablet Take 2 tablets (1,000 mg total) by mouth every 6 (six) hours as needed Active dextroamphetamine sulfate (DEXTROSTAT) 30 mg tablet daily Active dicyclomine (BENTYL) 10 mg capsule Take 1 capsule (10 mg total) by mouth 4 (four) times a day Active multivitamin tablet Take 1 tablet by mouth daily Active omeprazole (PriLOSEC) 40 mg capsule Active ondansetron ODT (ZOFRAN-ODT) 4 mg disintegrating tablet daily 12/27/19 22 Active BIOTIN ORAL Take by mouth Acti ve linaclotide (LINZESS ORAL) Take 1 tablet by mouth daily as needed Active famotidine (PEPCID) 20 mg tablet Take 1 tablet (20 mg total) by mouth 2 (two) times a day 12/27/19 18 Active guaiFENesin-dextro methorphan ER (MUCINEX DM) 600-30 mg tablet extended release 12 hr Take 1 tablet by mouth 2 times daily Active HYDROcodone-acetam inophen (NORCO) 10-325 mg per tablet Take 1 tablet by mouth every 4 (four) hours as needed 12/28/19 20 Active hyoscyamine (LEVSIN) 0.125 mg SL tablet 01/30/20 22 Active iron aprema-R-N41-Ca-su c-stoma (MULTIGEN) 70 mg-150 mg-10 mcg-2 mg-75 mg tablet Take by mouth daily Active chlorzoxazone (PARAFON FORTE) 500 mg tablet Take 1 tablet (500 mg total) by mouth 4 (four) times a day as needed Active morphine ER (MS CONTIN) 30 mg 12 hr tablet Take 1 tablet (30 mg total) by mouth every 12 (twelve) hours 08/31/19 21 Active ondansetron (ZOFRAN) 4 mg tablet Take 1 tablet (4 mg total) by mouth every 8 (eight) hours as needed 12/27/19 18 Active QUEtiapine XR (SEROquel XR) 150 mg 24 hr tablet Take 1 tablet (150 mg total) by mouth nightly Active calcium carbonate-vit D3-min 600 mg calcium- 400 unit tablet Take 2 tablets by mouth daily Active gabapentin (NEURONTIN) 300 mg capsule Take 1 capsule (300 mg total) by mouth 3 (three) times a day 12/19/19 23 Active hydrOXYzine (VISTARIL) 50 mg capsule TAKE 1-2 CAPSULE(S) BY MOUTH UP TO 3 TIMES A DAY NEEDED FOR ANXIETY 12/20/19 23 Active dextroamphetamine- amphetamine (ADDERALL) 30 mg tablet Take 1 tablet (30 mg total) by mouth 2 (two) times a day 01/08/20 23 Active venlafaxine XR (EFFEXOR-XR) 150 mg 24 hr capsule Take 1 capsule (150 mg total) by mouth every morning 12/22/19 23 Active multivitamin with minerals tablet Take 1 tablet by mouth daily Active polyethylene glycol 3350 (MIRALAX ORAL) 1 packet(s), Oral, daily, PRN, REC Powder, 0, congestion 07/31/19 20 Active clindamycin (CLEOCIN) 2 % vaginal cream INSERT 1 APPLICATORFUL VAGINALLY EVERY DAY AT BEDTIME FOR 3 DAYS 08/29/19 24 Active fluconazole (DIFLUCAN) 150 mg tablet TAKE 1 TABLET BY MOUTH EVERY 72 HOURS A SINGLE DOSE Active predniSONE (DELTASONE) 10 mg tablet pack 4 tablets once a day for 7 days, 3 tablets once a day for 7 days, 2 tablets once a day for 7 days, 1 tablet once a day for 7 days Orally for 28 days 09/04/19 24 Active Active Problems Problem Noted Date Diagnosed Date Sickle cell trait 01/29/2023 Varicose vein of leg 01/29/2023 Overview (01/29/2023): thighs Vitamin D deficiency 01/29/2023 Gastrointestinal hemorrhage associated with kyleigh naif ulcer 02/07/2022 Intentional benzodiazepine overdose 01/30/2022 Adjustment disorder with mix ed disturbance of emotions and conduct 01/24/2022 Fever 01/24/2022 Anxiety disorder 01/24/2022 Insomnia due to mental disorder 01/24/2022 Panic disorder 01/24/2022 Right ureteral stone 01/09/2022 Overview (01/09/2022): Added automatically from request for surgery [id number] Anastomotic ulcer S/P gastric bypass 12/30/2021 Acute upper GI bleed 12/30/2021 Acute blood loss anemia 12/30/2021 Chronic anxiety 12/30/2021 Attention deficit hyperactiv ity disorder (ADHD), combined type 12/30/2021 HTN (hypertension) 12/30/2021 Mild malnutrition 12/30/2021 Iron deficiency anemia due to chronic blood loss 12/29/2021 S/P gastric bypass 12/29/2021 Colon polyp 12/29/2021 Asthma 12/29/2021 Iron deficiency anemia 12/29/2021 Observation after surgery 12/29/2021 DDD (degenerative disc disease), cervical 2019 Overview (01/29/2023): Status post ACDF with Dr. Fong Acute left-sided weakness 10/25/2019 Irritable bowel syndrome with constipation 07/14 Abdominal pain 05/04/2019 Pseudoarthrosis of cervical spine 10/13/2018 HNP (herniated nucleus pulposus), cervical 12/23 Exposure to chemical inhalation 02/19/2017 Dysphagia 10/26/2015 Anemia 05/29/2012 Metrorrhagia 01/21/2012 Surgical History Surgery Date Site/Laterality Comments COLONOSCOPY PARTIAL HYSTERECTOMY REPLACEMENT TOTAL KNEE BILATERAL GASTRIC BYPASS ROTATOR CUFF REPAIR Right CARPAL TUNNEL RELEASE Left INGUINAL HERNIA REPAIR TONSILLECTOMY CERVICAL FUSION JOINT REPLACEMENT BREAST BIOPSY 06/21/2017 Right Medical History Medical History Date Comments Chronic constipation Colon polyp Hypertension Asthma TIA (transient ischemic attack) 2019 ADHD (attention deficit hyperactivity disorder) Anxiety Arthritis History of bleeding ulcers Anemia Cholelithiasis Dysphagia GERD (gastroesophageal reflux disease) Kidney stone Depression History of transfusion Stroke (HCC) Peptic ulceration Family History Medical History Relation Name Comments Gout Brother Arthritis Father Diabetes Father Gout Father Hypertension Father Arthritis Mother Cancer Mother Clotting disorder Mother Hypertension Mother Ovarian cancer Mother Relation Name Status Comments Brother Father Mother Social History Tobacco Use Types Packs/Day Years Used Date Smoking Tobacco: Never Smokeless Tobacco: Never Tobacco Cessation:Counseling Given: Not Answered Comments:No smoker Social Connection and Isolation Panel Answer Date Recorded In a typical week, how many times do you talk on the phone with family, friends, or neighbors? Three times a week 01/01/2022 How often do you get togethe r with friends or relatives? Never 01/01/2022 How often do you attend chur ch or mandaen services? Never 01/01/2022 Do you belong to any clubs o r organizations such as voodoo groups, unions, fraternal or athletic groups, or school groups? No 01/01/2022 How often do you attend meet ings of the clubs or organizations you belong to? Never 01/01/2022 Are you , , di vorced, , never , or living with a partner? 01/01/2022 AUDIT-C Answer Date Recorded Q1: How often do you have a drink containing alcohol? Never 07/20/2022 Q2: How many drinks containi ng alcohol do you have on a typical day when you are drinking? Patient does not drink 3 Q3: How often do you have si x or more drinks on one occasion? Never 07/20/2022 Overall Financial Resource Strain (CARDIA) Answe r Date Recorded How hard is it for you to pa y for the very basics like food, housing, medical care, and heating? Not hard at all 01/01/2022 Hunger Vital Sign Answer Date Recorded Within the past 12 months, y ou worried that your food would run out before you got the money to buy more. Never true 01/02/20 22 Within the past 12 months, t he food you bought just didn't last and you didn't have money to get more. Never true 01/01/2022 PRAPARE - Transportation Answer Date Re corded In the past 12 months, has l ack of transportation kept you from medical appointments or from getting medications? No 06/2021 In the past 12 months, has l ack of transportation kept you from meetings, work, or from getting things needed for daily living? No 01/01/2022 Housing Stability Vital Sign Answer Jed e Recorded In the last 12 months, was t here a time when you were not able to pay the mortgage or rent on time? No 01/01/2022 In the last 12 months, how many places have you lived? 1 01/01/2022 In the last 12 months, was t here a time when you did not have a steady place to sleep or slept in a group home (including now)? No 01/01/2022 Personal Safety Answer Date Recorded Getting School Help Needed Denies 06/04 Comments No Sex and Gender Information Value Date Recorded Sex Assigned at Not on file Legal Sex Female 6:30 PM [employer] Gender Identity Not on file Sexual Orientation Not on file Obstetrics History Para Term AB IAB SAB Ectopic Multiple Livin g Live Births 4 Date Outcome GA Total Labor Labor/2nd/3rd Weight Sex Type Anes PTL Meg A1 A5 Name Clin Last Filed Vital Signs Vital Sign Reading Time Taken Comments Blood Pressure 126/100 07/20/2022 12:24 PM [employer] Pulse 77 07/20/2022 12:24 PM [employer] Temperature 36.7 C (98 F) 07/20/2022 9:37 AM [employer] Respiratory Rate 14 07/20/2022 12:24 PM [employer] Oxygen Saturation 100% 07/20/2022 12:24 PM [employer] Inhaled Oxygen Concentration - - Weight 75.3 kg (166 lb) 11/20/2023 3:51 PM CDT Height 153.7 cm (5' 0.5) 11/20/2023 3:51 PM CDT Body Mass Index 31.89 11/20/2023 3:51 PM CDT Plan of Treatment Health Maintenance Due Date Last Done Comments Depression Screening 1965 Hepatitis C Screening 1965 DTaP/Tdap/Td Vaccine (1 - Tdap) 1978 Hepatitis B Screening 1985 Regular Well Visit/Exam 18-64 1985 Pneumococcal vaccine <65 (1 of 2 - PCV) 1986 Zoster Vaccine (1 of 2) 2017 Breast Cancer Screening-Mammogram 04/29/2018 017 Influenza Vaccine (#1) 2025 Colon Cancer Screening-Colonoscopy 07/20/20322022 Colon Cancer Screening-CT Colonography Discontinued Colon Cancer Screening-DNA Stool Discontinued 07/20/19 Colon Cancer Screening-FIT Discontinued 07/20/2022 Colon Cancer Screening-Sigmoidoscopy Discontinued 07/04 Medical Devices Implanted Type Area Health Analyst Device Identifier Shelf Expiration Date Model / Serial / Lot [employer] Christy Contour 6fr 24cm Large Inner Lumen Low Profile Bladder Sahil Taper Latex Free 180-222 - [id number] Implanted:Qty: 1 on 01/01/2022 by Nicolás Vincent MD at [facility] Right: Ureter [employer] Christy 10/18/2024 180-222 / / [id number] Procedures Procedure Name Priority Date/Time Associated Diagnosis Comments COLONOSCOPY 07/20/2022 7:22 AM [employer] from Last 3 Months or Most Recently Relevant to Health Maintenance Results * COLONOSCOPY (07/20/2022 7:22 AM [employer]) Anatomical Region Laterality Modality Other Narrative Procedure Note Ronan Finley MD - 07/20/2022 7:22 AM CST ENDOSCOPY LAB Patient Name: Deepali Nelson Procedure Date: 07/20/2022 7:22 AM Admit Type: Outpatient Room: [facility] Date of : 1965 Instrument Name: [id number] Gender: Female Note Status: Finalized Procedure: Colonoscopy Indications: High risk colon cancer surveillance: Personalhistory of colonic polyps, Last colonoscopy: 2018 Providers: Ronan Finley M.D. Referring MD: Sami Dong D.O. Medicines: Propofol per Anesthesia Complications: No immediate complications. Estimated Blood Loss: Estimated blood loss: none. Procedure: Pre-Anesthesia Assessment: - Pre-procedure physical examination revealed no contraindications to sedation. - The risks and benefits of the procedure and the sedation options and risks were discussed with the patient. All questions were answered and informed consent was obtained. The benefits, risks and alternatives of theprocedure and sedation were discussed and informed consentwas obtained. All questions were answered. Please referto the signed informed consent document in the medical record. The colonoscopy was performed without difficulty. The patient tolerated the procedurewell. The quality of the bowel preparation was good. The quality of the bowel preparation was evaluatedusing the BBPS (Randolph Bowel Preparation Scale) withscores of: Right Colon = 3 (entire mucosa seen well withno residual staining, small fragments of stool oropaque liquid), Transverse Colon = 3 (entire mucosa seenwell with no residual staining, small fragments of stoolor opaque liquid) and Left Colon = 3 (entire mucosaseen well with no residual staining, small fragments of stool or opaque liquid). The total BBPS scoreequals 9. The bowel preparation used was polyethyleneglycol (PEG) via split dose instruction. Bowel prep was administered using a split dose. Bowel prep was administered using a split dose. The scope waspassed under direct vision. The Colonoscope was introduced through the anus and advanced to the the cecum, identified by appendiceal orifice and ileocecalvalve. Findings: Internal hemorrhoids were found during retroflexion. The exam was otherwise without abnormality. Impression: - Internal hemorrhoids. - The examination was otherwise normal. - No specimens collected. Recommendation: - Repeat colonoscopy in 5 years for surveillance. Electronically signed by Ronan Finley MD Ronan Finley M.D. 07/20/2022 11:51:48 AM Number of Addenda: 0 Note Initiated On: 07/20/2022 7:22 AM Scope Withdrawal Time: 0 hours 6 minutes 0 seconds Scope In: 11:34:58 AM Scope Out: 11:47:51 AM us Ronan Finley MD ENDOSCOPY PROCEDURES Final Result from Last 3 Months or Most Recently Relevant to Health Maintenance Insurance [address] [place] [id number] MEDIC[place] [facility] [place] [address] MEDICARE [facility] [place] [address] MEDICARE [place] [address] Advance Directives For more information, please contact: [phone] * Full Code (Latest Code Status on File) Date Activated Date Inactivated Comments 12/29/2021 1:57 PM 01/09/2022 12:25 AM * Full Code Date Activated Date Inactivated Comments 10/24/2019 3:31 AM 10/25/2019 8:21 PM Care Teams Supervisor Fur Dressing Relationship Specialty Start Date End Date Sami Dong DO [address] [place] [address] PCP - General 11/12/16 Ronan Finley MD [address] [facility] [address] [place] [address] Consulting Physician Gastroenterology 01/08/22 Nicolás [place] [address] [place] [address] Consulting Physician Urology 01/08/22 [place] [address] [place] [address] Anesthesiologist Anesthesiology 01/08/22
--- OUTSIDE RECORDS SUMMARY | 2025-04-22 18:23 | XMS_ITS | Patient Health Record ---
Author Organization [facility] Address [address] [place] [address] Care Team Providers Care Electronics Research Engineer Name Role Phone DongSami nielsen DO Primary Care Provider Unavail able IVONNE MCDOWELL, HUMAIRA Unavailable Allergies Allergen (clinical drug ingredient) Drug/Non Drug Allergy documented on EMR Reaction Allergy Type Onset Date Status Iodinated contrast media (substance) iodine contrast (uncoded) Unknown Allergy Active erythromycin Erythromycin Unknown Drug Allergy A ctive angiotensin-converting enzyme inhibitor (FN) NICK Inhibitors Unknown Drug Allergy Acti ve Reason For Referral No Information Medications Medication SIG (Take, Route, Frequency, Duration) Notes Start Date End Date Status Hyoscyamine Sulfate 0.125 MG DISSOLVE 1 TABLET UNDER THE TONGUE 3 TIMES DAILY NEEDED; Duration: 90 Active Ondansetron 4 MG 1 tablet on the tongue and allow to dissolve Orally Once a day; Duration: 30 day(s) 12/27/2021 Not-Taking Carafate 1 GM/10ML 10 mL 1 hour before meals and at bedtime on an empty stomach Orally Four times a day; Duration: 30 days 07/05/2023 Active ALPRAZolam ER 1 MG 1 tablet in the morning Orally Once a day Active Amitriptyline HCl 25 MG 1 tablet at bedtime Orally Once a day Active Dextroamphetamine Sulfate 30 MG 1 tablet in the morning Orally Once a day Not-Taking amLODIPine Besylate 10 MG 1 tablet Orally Once a day Active Omeprazole 40 MG TAKE 1 CAPSULE BY MOUTH 30 MINUTES BEFORE MORNING MEAL EVERY DAY FOR 30 DAYS; Duration: 90 Active Sucralfate 1 GM/10ML TAKE 10 MILLILITERS BY MOUTH 1 HOUR BEFORE MEALS AND AT BEDTIME ON AN EMPTY STOMACH (FOUR TIMES A DAY) FOR 30 DAYS; Duration: 90 Active Albuterol Sulfate HFA 108 (90 Base) MCG/ACT 1 puff as needed Inhalation every 4 hrs Not-Taking predniSONE 10 MG 4 tablets once a day for 7 days, 3 tablets once a day for 7 days, 2 tablets once a day for 7 days, 1 tablet once a day for 7 days Orally; Duration: 28 days Dx: mesenteritis 09/04/2023 Active traZODone HCl 150 MG 1 tablet at bedtime Orally Once a day Active Problems Problem Type SNOMED Code ICD Code Onset Dates Problem Status W/U Status Risk Notes Problem Ascites (101380498) Other ascites (R18.8) Active confirmed Problem History of polyp of colon (situation) (175225565) Personal history of colonic polyps (Z86.010) Active confirmed Plan Of Treatment Pending Test Test Name Order Date Colonoscopy 12/27/2021 Colonoscopy 06/12/2022 Esophagogastroduodenoscopy (EGD) 024 Ultrasound : Abdominal 09/04/2023 Insurance Providers Payer Name Payer Address Payer Phone Subscriber Number Group Number Insured Name Patient Relationship to Insured Coverage Start Date Coverage End Date Medicare- O Medicare [address] [address] [place], [place] [id number] Deepali Montejo Self - patient is the insured [facility] [address] [place], [place] [id number] Deepali Montejo Self - patient is the insured Medical (General) History Medical History History ICD Code anxiety asthma hypertension iron deficiency anemia colonic polyps Surgical History Surgery Date(Month/Year) lap cholecystectomy 09/2003 mykel-en-y gastric bypass 2013 partial hysterectomy hernia repair EGD/colonoscopy 2016 EGD/Colonoscopy - colon polyps- repeat i n 3 years. 2019 ERCP-Aliperti- recurrent pap illary stenosis with extension of previous bili/panc sphincterotomies, KORY performed and removed 11/1411/12/16 EGD- Aliperti- actively blee ding, anastomotic ulcer at site of colby, colby removed, multimodailty hemostasis attained. 12/29/21 EGD Aliperti- anastomotic ulcer with sig nificant improvement 01/03/22 EGD/colon Aliperti- complete healing of ulcer, int hemorrhoids repeat colon in 5 years. 07/20/22
[2025-04-22 18:41] LABS: Hematocrit 47.3 % (37.0-47.0); Hemoglobin 15.3 g/dL (12.0-15.0); Immature Granulocyte Percent A 0.5 % (0-0.5); Lymphocytes Absolute Auto 1.71 K/mm3 (0.9-3.2); Mean Corpuscular HGB Conc 32.3 g/dl (32-36); Mean Corpuscular Hemoglobin 30.6 pg (26-34); Mean Corpuscular Volume 94.6 fl (80-100); Nucleated Red Blood Cells Absolute Auto 0.000 K/mm3 (0.0-0.012); Nucleated Red Blood Cells Perc 0.0 % (0.0-0.2); Platelet Count Result 345 k/mm3 (150-375); Red Blood Count 5.00 M/mm3 (4.2-5.4); White Blood Count 17.7 K/mm3 (4.5-10.0)
--- NOTE | 2025-04-22 18:46 | ED_ITS ---
HPI - Chest Pain General Chief Complaint: Chest Pain <Ceci Conteh PA-C - Last Filed: 04/22/25 19:12> Stated Complaint: chest pain <Ceci Conteh PA-C - Last Filed: 04/22/25 19:12> Time Seen by Provider: 04/22/25 18:51 <Ceci Conteh PA-C - Last Filed: 04/22/25 19:12> Focused HPI: Patient is a 60-year-old female, with PMH of gastric bypass, HTN, cholecystectomy, who presents the ED via EMS with report of chest and abdominal pain. Patient reports having slight pain throughout her chest last night. Went to sleep and felt ok initially upon waking up today. Began having increased pain again today, radiating through to her back. Also reports pain throughout her upper abdomen radiating through to her back. Began vomiting a couple of hours ago. Has been unable to keep down food or drink. Denies fever, SOB, diarrhea, constipation. GENERAL: Ill appearing, in mild acute distress. Actively retching on exam. HEAD: Normocephalic, atraumatic. CHEST: Clear to auscultation. ?No respiratory distress. HEART: Regular rate and rhythm.? ABD: Diffuse tenderness throughout upper abdomen. No chest wall tenderness. No palpable masses NEURO: ?Alert and oriented x3. Patient screened in triage and initial orders placed.? ?Additional care and disposition to be based upon?diagnostic testing and treatment. <Ceci Conteh PA-C - Last Filed: 04/22/25 19:12> Focused HPI: Patient is a 60-year-old female, with PMH of Gastric peptic ulcers and previous GI bleeding, not on any anticoagulation, on daily Protonix. Previous recurrent hernia surgery and mesh repair. Previous gastric bypass, HTN, cholecystectomy, who presents the ED via EMS with report of chest and abdominal pain. Patient reports having slight pain throughout her chest last night. Having dark bloody bowel movements. Went to sleep and felt ok initially upon waking up today. Began having increased pain again today, radiating through to her back. Also reports pain throughout her upper abdomen radiating through to her back. Began vomiting a couple of hours ago. Has been unable to keep down food or drink. Denies fever, SOB, diarrhea, constipation. GENERAL: Ill appearing, in mild acute distress. Actively retching on exam. HEAD: Normocephalic, atraumatic. CHEST: Clear to auscultation. ?No respiratory distress. HEART: Regular rate and rhythm.? ABD: Diffuse tenderness throughout upper abdomen. No chest wall tenderness. No palpable masses NEURO: ?Alert and oriented x3. Patient screened in triage and initial orders placed.? ?Additional care and disposition to be based upon?diagnostic testing and treatment. <Rangel Ortiz MD - Last Filed: 04/23/25 04:26> Source: patient and EMS <Ceci Conteh PA-C - Last Filed: 04/22/25 19:12> Mode of arrival: EMS <Ceci Conteh PA-C - Last Filed: 04/22/25 19:12> Limitations: no limitations and clinical condition <Ceci Conteh PA-C - Last Filed: 04/22/25 19:12> History of Present Illness HPI narrative: agree with the HPI above <Rangel Ortiz MD - Last Filed: 04/23/25 04:26> Related Data Home Medications: Home Medications ?Medication ?Instructions ?Recorded ?Confirmed ?Last Taken ?Type alprazolam 0.5 mg tablet 0.5 mg PO QNOON 01/21/22 Unknown History Held on 01/23/22. Instructions: HOLD - Resume if okay with your doctor alprazolam 1 mg tablet 1 mg PO BID 01/21/22 4 Unknown History Held on 01/23/22. Instructions: HOLD - Resume if okay with your doctor amlodipine 10 mg tablet 10 mg PO DAILY 01/21/2208/02 Unknown History dextroamphetamine-amphetamine 30 1 tablet PO BID 01/2108/22/23 Unknown History mg tablet Held on 01/23/22. Instructions: HOLD - Resume if okay with your doctor pantoprazole 40 mg tablet,delayed 40 mg PO BID 2 08/22/23 Unknown History release hydroxyzine HCl 25 mg tablet 25 mg PO TID PRN Anxiety 01/22/22 08/22/23 Unknown History Held on 01/23/22. Instructions: HOLD - Resume if okay with your doctor trazodone 150 mg tablet 150 mg PO HS 01/22/22 Unknown History Held on 01/23/22. Instructions: HOLD - Resume if okay with your doctor amitriptyline 25 mg tablet 25 mg PO 08/22/23 08/22/23 Unknown History gabapentin 400 mg capsule 400 mg PO 08/22/23 08/22/23 Unknown History omeprazole 40 mg capsule,delayed 40 mg PO 08/22/23 Unknown History release <HERMILA Daily Last Filed: 04/22/25 19:12> Allergies/Adverse Reactions: Allergies Allergy/AdvReac Type Severity Reaction Status Date / Time Iodinated Contrast Media Allergy Mild Hives Verified 04/22/25 17:24 NICK Inhibitors Allergy Unknown Verified 04/22/25 17:24 iodine Allergy Unknown Verified 04/22/25 17:24 <Ceci Conteh PA-C - Last Filed: 04/22/25 19:12> Review of Systems 2 Review of Systems: as reviewed above in HPI <Rangel Ortiz MD - Last Filed: 04/23/25 04:26> [facility] Past Medical History Medical History: Medical History Gastritis Hypertension Attention deficit disorder Depression with anxiety <Ceci Conteh PA-C - Last Filed: 04/22/25 19:12> Surgical History Surgical History: Surgical History History of carpal tunnel release H/O hernia repair History of knee replacement S/P shoulder surgery H/O cervical spinal arthrodesis S/P partial hysterectomy <Ceci Conteh PA-C - Last Filed: 04/22/25 19:12> Family History Family History: Family History Unknown Unknown family medical history <Ceci Conteh PA-C - Last Filed: 04/22/25 19:12> Social History Social History: Social History Social History: Smoking status: Never smoker Alcohol intake: never Substance use: never Substance use type: does not use Do You Feel Safe in your Home?: Yes Lack of Transportation: No Lack of Food: Never True Current Housing: I Have Housing Concerned About Future Housing: No Difficulty Paying Gas/Electric Bills: No Difficulty Paying for Meds: No Currently Unemployed: No Education: Associate Degree Difficulty w/ Childcare or Family Care: No Living arrangements: with family Occupation/Education: retired Gender identity (if verbalized by the patient): Female Spiritual care concerns: No <Ceci Conteh PA-C - Last Filed: 04/22/25 19:12> Exam 2 Narrative: GENERAL: ill-appearing and in acute distress with retching. HEAD: [Normocephalic, atraumatic.] EYES: [PERRLA and EOMI.] ENT: Nares clear, no rhinorrhea or epistaxis. Mucous membranes moist. NECK: Supple. CHEST: [Clear to auscultation. No respiratory distress.] HEART: [Regular rate and rhythm]. No murmur heard. [Normal peripheral pulses.] ABDOMEN: Distended tender abdomen diffusely. Previous surgical scars. Soft. EXTREMITIES: Normal range of motion. [No edema.] SKIN: Warm, dry, no rash. NEURO: [No focal deficits]. Alert and oriented [x3.] PSYCH: [Normal mood and affect.] <Rangel Ortiz MD - Last Filed: 04/23/25 04:26> Course Vital Signs Vital signs: Vital Signs Temperature 35.9 C L 04/22/25 17:12 Pulse Rate 56 L 04/22/25 17:12 Respiratory Rate 16 04/22/25 17:12 Blood Pressure 124/74 04/22/25 17:12 Pulse Oximetry 100 04/22/25 17:12 Oxygen Delivery Room Air 04/22/25 17:12 Temperature 35.9 C L 04/22/25 17:12 Pulse Rate 82 04/23/25 00:03 Respiratory Rate 16 04/23/25 00:03 Blood Pressure 129/86 04/23/25 00:03 Pulse Oximetry 99 04/23/25 00:03 Oxygen Delivery Room Air 04/22/25 19:30 <Ceci Conteh PA-C - Last Filed: 04/22/25 19:12> Vital Signs Temperature 35.9 C L 04/22/25 17:12 Pulse Rate 56 L 04/22/25 17:12 Respiratory Rate 16 04/22/25 17:12 Blood Pressure 124/74 04/22/25 17:12 Pulse Oximetry 100 04/22/25 17:12 Oxygen Delivery Room Air 04/22/25 17:12 Temperature 35.9 C L 04/22/25 17:12 Pulse Rate 82 04/23/25 00:03 Respiratory Rate 16 04/23/25 00:03 Blood Pressure 129/86 04/23/25 00:03 Pulse Oximetry 99 04/23/25 00:03 Oxygen Delivery Room Air 04/22/25 19:30 <Rangel Ortiz MD - Last Filed: 04/23/25 04:26> MDM - Chest Pain MDM Narrative Medical decision making narrative: MSE by ALBA in triage. <Ceci Conteh PA-C - Last Filed: 04/22/25 19:12> MSE by ALBA in triage. Patient is a 60-year-old female, with PMH of Gastric peptic ulcers and previous GI bleeding, not on any anticoagulation, on daily Protonix. Previous recurrent hernia surgery and mesh repair. Previous gastric bypass, HTN, cholecystectomy, who presents the ED via EMS with report of chest and abdominal pain. Patient reports having slight pain throughout her chest last night. Having dark bloody bowel movements. Went to sleep and felt ok initially upon waking up today. Began having increased pain again today, radiating through to her back. Also reports pain throughout her upper abdomen radiating through to her back. Began vomiting a couple of hours ago. Has been unable to keep down food or drink. Denies fever, SOB, diarrhea, constipation. patient is ill-appearing and has a very tender abdomen. Soft and minimally distended. Vital signs are stable without any significant tachycardia, fever, hypoxemia blood pressure anomalies. Given patient's multiple abdominal surgical history is with GI bleeding in the past as well as reported bloody bowel movements and pain rating into her back and chest broad workup initiated this time to rule out causes such as GI bleeding, aortic enteric fistula, bowel obstruction, aortic dissection, intra-abdominal infection or peritonitis. Laboratory studies obtained as well as CT scan with arterial phase angiography of the chest abdomen pelvis after pretreatment given her allergy to iodinated contrast medium. Patient tolerated the CT well after Solu-Medrol and Benadryl. Laboratory studies show leukocytosis of 17. Hemoglobin of 15 with hemoconcentration. Repeat H&H ordered given the concern for GI bleeding. CT scan reviewed independently interpreted by Radiology showing arterial extravasation in the right lower quadrant concerning for active GI bleed. Diffuse ileus without any signs of obstruction otherwise. Free fluid in the abdomen pelvis. Patient required multiple rounds of pain medications including Dilaudid analgesia with morphine. She was given fluids and repeat H&H. Reaching out to [facility] transfer system and patient's preferred hospital request for transfer to facility with IR capabilites. spoke to the [facility] transfer system and awaiting conversation with IR /ED for transfer. Patient's family made aware of the plan and updated on care. Spoke to the IR physician over at [facility] and relayed patient's clinical exam and findings on CT angiography as well as the decreased hemoglobin within 2 hours to 13.3. Given the active arterial extravasation and need for IR patient was transferred to the emergency department over at [facility] ED after IR accepted to see them emergently. Spoke to Dr. Obregon the ER physician who accepted the patient over the phone at this time. <Rangel Ortiz MD - Last Filed: 04/23/25 04:26> Medical Records Data Attestation: I reviewed the patient's medical records. <Rangel Ortiz MD - Last Filed: 04/23/25 04:26> Lab Data Attestation: I reviewed the patient's lab results. <Rangel Ortiz MD - Last Filed: 04/23/25 04:26> Result diagrams: 04/22/25 21:46 04/22/25 20:57 <Ceci Conteh PA-C - Last Filed: 04/22/25 19:12> Labs: Lab Results 04/22/25 04/22/25 04/22/25 Range/Units 18:33 20:57 21:46 WBC 17.7 H (4.5-10.0) K/mm3 RBC 5.00 (4.2-5.4) M/mm3 Hgb 15.3 H 13.2 (12.0-15.0) g/dL Hct 47.3 H 38.6 (37.0-47.0) % MCV 94.6 (80-100) fl MCH 30.6 (26-34) pg MCHC 32.3 (32-36) g/dl RDW 14.5 (11.5-14.5) % Plt Count 345 (150-375) k/mm3 MPV 9.9 (7.4-10.4) fl Immature Gran % (Auto) 0.5 (0-0.5) % Neut % (Auto) 85.6 H (45.5-73.1) % Lymph % (Auto) 9.6 L (18.3-44.2) % [place] % (Auto) 3.9 (2.6-8.5) % Eos % (Auto) 0.2 (0-4.4) % Baso % (Auto) 0.2 (0.2-1.2) % Lymph # (Auto) 1.71 (0.9-3.2) K/mm3 [place] # (Auto) 0.7 H (0.1-0.6) K/mm3 Eos # (Auto) 0.0 (0-0.3) K/mm3 Baso # (Auto) 0.0 (0.0-0.1) K/mm3 Abs Immat Gran (auto) 0.08 H (0.00-0.031) K/mm3 Absolute Neuts (auto) 15.2 H (1.3-6.7) K/mm3 Absolute Nucleated RBC 0.000 (0.0-0.012) K/mm3 Nucleated RBC % 0.0 (0.0-0.2) % PT 14.2 (11.1-14.7) Seconds INR 1.1 APTT 25.5 (22.3-36.8) Seconds Sodium 134 L (137-145) mmol/L Potassium 4.5 (3.4-5.0) mmol/L Chloride 100 (98-107) mmol/L Carbon Dioxide 25 (22-30) mmol/L Anion Gap 9 (4-12) mmol/L BUN 19 H (7-17) mg/dL Creatinine 0.80 (0.7-1.0) mg/dL Estim Creat Clear Calc 65 ml/min Estimated GFR > 60 (59 - ) Glucose 131 H (65-110) mg/dL Lactic Acid 1.6 (0.7-2.0) mmol/L Calcium 9.2 (8.4-10.2) mg/dL Total Bilirubin 0.8 (0.2-1.3) mg/dL AST 50 H (14-36) U/L ALT 40 H (6-35) U/L Alkaline Phosphatase 96 (38-126) U/L Troponin I < 0.012 (0.000-0.034) ng/mL Total Protein 7.6 (6.3-8.2) g/dL Albumin 4.2 (3.5-5.1) g/dL Lipase 35 (23-300) U/L Urine Color Yellow (Yellow) Urine Appearance Clear (Clear) Urine pH 5.5 (5.0-9.0) Ur Specific [place] 1.020 (1.001-1.035) Urine Protein Negative (Negative) mg/dL Urine Glucose (UA) Negative (Negative) mg/dL Urine Ketones Negative (Negative) mg/dL Ur Blood (Man) Negative (Negative) Urine Nitrate Negative (Negative) Urine Bilirubin Negative (Negative) Urine Urobilinogen 0.2 (<2.0) mg/dL Leukocyte Esterase Rfl Negative (Negative) CRISTIAN/UL <Ceci Conteh PA-C - Last Filed: 04/22/25 19:12> Lab Results 04/22/25 04/22/25 04/22/25 Range/Units 18:33 20:57 21:46 WBC 17.7 H (4.5-10.0) K/mm3 RBC 5.00 (4.2-5.4) M/mm3 Hgb 15.3 H 13.2 (12.0-15.0) g/dL Hct 47.3 H 38.6 (37.0-47.0) % MCV 94.6 (80-100) fl MCH 30.6 (26-34) pg MCHC 32.3 (32-36) g/dl RDW 14.5 (11.5-14.5) % Plt Count 345 (150-375) k/mm3 MPV 9.9 (7.4-10.4) fl Immature Gran % (Auto) 0.5 (0-0.5) % Neut % (Auto) 85.6 H (45.5-73.1) % Lymph % (Auto) 9.6 L (18.3-44.2) % [place] % (Auto) 3.9 (2.6-8.5) % Eos % (Auto) 0.2 (0-4.4) % Baso % (Auto) 0.2 (0.2-1.2) % Lymph # (Auto) 1.71 (0.9-3.2) K/mm3 [place] # (Auto) 0.7 H (0.1-0.6) K/mm3 Eos # (Auto) 0.0 (0-0.3) K/mm3 Baso # (Auto) 0.0 (0.0-0.1) K/mm3 Abs Immat Gran (auto) 0.08 H (0.00-0.031) K/mm3 Absolute Neuts (auto) 15.2 H (1.3-6.7) K/mm3 Absolute Nucleated RBC 0.000 (0.0-0.012) K/mm3 Nucleated RBC % 0.0 (0.0-0.2) % PT 14.2 (11.1-14.7) Seconds INR 1.1 APTT 25.5 (22.3-36.8) Seconds Sodium 134 L (137-145) mmol/L Potassium 4.5 (3.4-5.0) mmol/L Chloride 100 (98-107) mmol/L Carbon Dioxide 25 (22-30) mmol/L Anion Gap 9 (4-12) mmol/L BUN 19 H (7-17) mg/dL Creatinine 0.80 (0.7-1.0) mg/dL Estim Creat Clear Calc 65 ml/min Estimated GFR > 60 (59 - ) Glucose 131 H (65-110) mg/dL Lactic Acid 1.6 (0.7-2.0) mmol/L Calcium 9.2 (8.4-10.2) mg/dL Total Bilirubin 0.8 (0.2-1.3) mg/dL AST 50 H (14-36) U/L ALT 40 H (6-35) U/L Alkaline Phosphatase 96 (38-126) U/L Troponin I < 0.012 (0.000-0.034) ng/mL Total Protein 7.6 (6.3-8.2) g/dL Albumin 4.2 (3.5-5.1) g/dL Lipase 35 (23-300) U/L Urine Color Yellow (Yellow) Urine Appearance Clear (Clear) Urine pH 5.5 (5.0-9.0) Ur Specific [place] 1.020 (1.001-1.035) Urine Protein Negative (Negative) mg/dL Urine Glucose (UA) Negative (Negative) mg/dL Urine Ketones Negative (Negative) mg/dL Ur Blood (Man) Negative (Negative) Urine Nitrate Negative (Negative) Urine Bilirubin Negative (Negative) Urine Urobilinogen 0.2 (<2.0) mg/dL Leukocyte Esterase Rfl Negative (Negative) CRISTIAN/UL <Rangel Ortiz MD - Last Filed: 04/23/25 04:26> Imaging Data Attestation: I personally reviewed and interpreted this imaging study as follows: < Rangel Ortiz MD - Last Filed: 04/23/25 04:26> My impression: Impressions Chest X-Ray 04/22/25 18:01 Impression: No acute cardiopulmonary abnormality. Chest/Abdomen/Pelvis CTA 04/22/25 20:51 IMPRESSION: 1. No acute findings thoracic aorta and abdominal aorta. No evidence of pulmonary embolus. 2. Hepatomegaly. Free fluid in the peritoneal cavity. 3. Diffuse ileus. Suggestion of extravasation of arterial contrast in the right lower quadrant in the cecum due to possible GI bleed. Please correlate with clinical and lab results. <Rangel Ortiz MD - Last Filed: 04/23/25 04:26> Critical Care Time Critical Care Time Critical Care Time: Yes <Rangel Ortiz MD - Last Filed: 04/23/25 04:26> Total Critical Care Time: 75 <Rangel Ortiz MD - Last Filed: 04/23/25 04:26> Discharge Plan Discharge Clinical Impression: Arterial hemorrhage, GIB (gastrointestinal bleeding), Abdominal pain <Ceci Conteh PA-C - Last Filed: 04/22/25 19:12> Patient Disposition: Acute Care Hospital <HERMILA Daily Last Filed: 04/22/25 19:12> Condition: Serious <HERMILA Daily Last Filed: 04/22/25 19:12> Patient Language: Czech <HERMILA Daily Last Filed: 04/22/25 19:12> Prescriptions: No Action amitriptyline 25 mg tablet 25 mg PO gabapentin 400 mg capsule 400 mg PO omeprazole 40 mg capsule,delayed release(DR/EC) 40 mg PO fluconazole 150 mg tablet 150 mg PO Q72H Qty: 2 0RF Rx Instructions: as a single dose alprazolam 1 mg tablet 1 mg PO BID dextroamphetamine-amphetamine 30 mg tablet 1 tablet PO BID alprazolam 0.5 mg Tablet 0.5 mg PO QNOON amlodipine 10 mg tablet 10 mg PO DAILY pantoprazole 40 mg tablet,delayed release (DR/EC) 40 mg PO BID trazodone 150 mg tablet 150 mg PO HS hydroxyzine HCl 25 mg tablet 25 mg PO TID PRN (Reason: Anxiety) clindamycin phosphate [Cleocin] 2 % cream 1 appful vaginal QHS Qty: 40 0RF Rx Instructions: for 3 days <HERMILA Daily Last Filed: 04/22/25 19:12> Follow-up/Referrals: UNKNOWN,DOCTOR [Non-Staff] <HERMILA Daily Last Filed: 04/22/25 19:12>
[2025-04-22] MEDS: ONDANSETRON INJ 4 MG/2 ML VIAL IV PUSH ×2 (18:51→21:00)
[2025-04-22] MEDS: SODIUM CHLORIDE 0.9% IV 1,000 ML 999 ML IV CONT (20:59)
[2025-04-22] MEDS: MORPHINE SULFATE (*CRX) 4 MG/ML INJ IV PUSH (21:00)
[2025-04-22 21:01] VITALS: BP 156/107; PULSE 86; RESP 14; O2SAT 100
[2025-04-22 21:05] LABS: Add Urine Microscopic? NO; Appearance Urine Clear (Clear); Glucose Urine UA Negative (Negative); Leukocyte Esterase Ur Negative LEU/UL (Negative); Nitrate Urine Negative (Negative); Specific Grav Ur 1.020 (1.001-1.035)
[2025-04-22 21:14] LABS: INR 1.1; Prothrombin Time 14.2 Seconds (11.1-14.7)
[2025-04-22 21:15] LABS: Partial Thromboplastin Time 25.5 Seconds (22.3-36.8)
[2025-04-22 21:22] LABS: Alanine Aminotransferase 40 U/L (6-35); Albumin Level 4.2 g/dL (3.5-5.1); Alkaline Phosphatase 96 U/L (38-126); Anion Gap 9 mmol/L (4-12); Aspartate Amino Transferase 50 U/L (14-36); Bilirubin,Total 0.8 mg/dL (0.2-1.3); Blood Urea Nitrogen 19 mg/dL (7-17); Calcium 9.2 mg/dL (8.4-10.2); Carbon Dioxide 25 mmol/L (22-30); Chloride 100 mmol/L (98-107); Estimated CRCL calculation 65 ml/min; Estimated Glomerular Filt Rate > 60; Glucose 131 mg/dL (65-110); Lipase 35 U/L (23-300); Potassium 4.5 mmol/L (3.4-5.0); Sodium 134 mmol/L (137-145); Total Protein 7.6 g/dL (6.3-8.2)
[2025-04-22 21:28] LABS: Troponin I < 0.012 ng/mL (0.000-0.034)
[2025-04-22 21:31] VITALS: BP 164/99; PULSE 78; RESP 13; O2SAT 96
--- OUTSIDE RECORDS SUMMARY | 2025-04-22 21:42 | XMS_ITS | Encounter Summary ---
Author Organization [facility] Address [address] [place] [address] Care Team Providers Care Tongue Binder Name Role Phone Unknown, Provider Primary Care Provider Unavaila Anthony Patel MD Primary Care Provider [phone] Tammi Abbasi RN Unavailable [phone] Sami Dong DO Primary Care Provider Encounter Details Date Type Department Care Team (Late st Contact Info) Description 05/19/2012 [facility] Outpatient Visit [facility] [address] [place] [address] Marcelina Smith MD [address] [place] [id number] Social History Tobacco Use Types Packs/Day Years Used Date Smoking Tobacco: Never Assessed Comments Unknown Sex and Gender Information Value Date Recorded Sex Assigned at Not on file Legal Sex Female 10:46 AM PASSENGER ATTENDANT Gender Identity Not on file Sexual Orientation Not on file documented as of this encounter Plan of Treatment Upcoming Encounters Date Type Department Care Team (Late st Contact Info) Description 05/05/2025 9:40 AM PASSENGER ATTENDANT Office Visit [facility] - Family Medicine [address] [place] [address] Miki Razo APRN-CLOTH BOOKER [address] [place] [address] documented as of this encounter Visit Diagnoses Not on filedocumented in this encounter Care Teams Tongue Binder Relationship Specialty Start Date End Date Unknown, Provider PCP - General 05/11/08 07/29/13 Anthony Casey MD [address] [place] [address] PCP - General Emergency Medicine 07/30/13 01/11/16 Sami Dong DO [address] [place] [address] PCP - General Family Medicine 01/12/16 Tammi Abbasi, JULIET Administrative Executive 11/04/15 05/04/19 documented as of this encounter
--- OUTSIDE RECORDS SUMMARY | 2025-04-22 21:42 | XMS_ITS | Encounter Summary ---
Author Organization [facility] Address [address] [place] [address] Care Team Providers Care Wood Carving Lathe Operator Name Role Phone Sami Dong DO Primary Care Provider [phone] Encounter Details Date Type Department Care Team (Late st Contact Info) Description 05/18/1999 Outpatient Historical [facility] Erika Mcclellan MD NO ADDRESS ON FILE Social History Tobacco Use Types Packs/Day Years Used Date Smoking Tobacco: Never Assessed Comments Unknown Sex and Gender Information Value Date Recorded Sex Assigned at Not on file Legal Sex Female 4:41 AM SPECIAL POLICE Gender Identity Not on file Sexual Orientation Not on file documented as of this encounter Plan of Treatment Not on file documented as of this encounter Visit Diagnoses Not on filedocumented in this encounter Care Teams Wood Carving Lathe Operator Relationship Specialty Start Date End Date Sami Dong DO [address] [place] [id number] PCP - General Family Practice 04/26/17 documented as of this encounter
--- OUTSIDE RECORDS SUMMARY | 2025-04-22 21:42 | XMS_ITS | Clinical Summary ---
Author Organization [facility] Address [address] [place] [address] Phone Care Team Providers Care Live Source Operator Name Role Phone Sami Dong Primary Care Provider [phone] Allergies Active Allergy Reactions Criticality Noted Date Comments Kash Inhibitors Anaphylaxis High 01/18/2012 Czpqyipmyo-Vvyniex-Fuhv eine Swelling Medium 05/20/2017 Cefazolin Angioedema High [...] on file Legal Sex Female 4:41 AM AGRICULTURAL EQUIPMENT SALESPERSON Gender Identity Not on file Sexual Orientation Not on file Occupation Industry Job Start Date Job End Date Not on file Not on file Not on file Not on file Last Filed Vital Signs Vital Sign Reading Time Taken Comments Blood Pressure 139/97 05/13/2024 10:23 AM AGRICULTURAL EQUIPMENT SALESPERSON Pulse 82 05/13/2024 10:23 AM AGRICULTURAL EQUIPMENT SALESPERSON Temperature 37 C (98.6 F) 12/29/2019 7:36 AM CDT Respiratory Rate 16 12/29/2019 7:36 AM CDT Oxygen Saturation 93% 05/13/2024 10:23 AM AGRICULTURAL EQUIPMENT SALESPERSON Inhaled Oxygen Concentration - - Weight 74.8 kg (165 lb) 05/13/2024 10:23 AM AGRICULTURAL EQUIPMENT SALESPERSON Height 157.5 cm (5' 2) 05/13/2024 10:23 AM AGRICULTURAL EQUIPMENT SALESPERSON Body Mass Index 30.18 05/13/2024 10:23 AM AGRICULTURAL EQUIPMENT SALESPERSON Plan of Treatment Health Maintenance Due Date [...] Screening 07/20/2032 Medical Devices Implanted Type Area Ice Skating Instructor Device Identifier Shelf Expiration Date Model / Serial / Lot Hemostatic Surgifoam Sz100 1973 - [id number] Implanted:Qty : 1 on 12/23/2017 by Hussain Dixon MD at [facility] Hemostatic N/A: Spine Cervical Anterior [employer]- [employer] [id number] 1973 / / [id number] Hemostatic Surgifoam 1gm 1977 - [id number] Implanted:Qty : 1 on 10/13/2018 by Hussain Dixon MD at [facility] Hemostatic N/A: Spine Cervical Anterior [employer]- [employer] 03/18/20221977 / / [id number] Description:used with thromb in PRN Allgrft Vivigen Matrix 5ml Bl-1500-002 - [id number] Implanted:Qty : 1 on 12/23/2017 by Hussain Dixon MD at [facility] Tissue N/A: Spine Cervical Anterior LIFENET 05/11/2018 BL-1500-0 02 / [id number] / Vertigraft Vg2 Cervical 7d Me7n-A00z - [id number] Implanted:Qty : 1 on 12/23/2017 by Hussain Dixon MD at [facility] Tissue N/A: Spine Cervical Anterior LIFENET 04/04/2022 [id number] / [id number] / Infuse Protein Kit [id number] - [id number] Implanted:Qty : 1 on 10/13/2018 by Hussain Dixon MD at [facility] Tissue N/A: Spine Cervical Anterior [employer]- SOFAMOR DANEK 04/02/2019 [id number] / / [id number] H Description:REQ#[id number] Vertigraft Vg2 Cervical 7d [id number] - [id number] Implanted:Qty : 1 on 10/13/2018 by Hussain Dixon MD at [facility] Tissue N/A: Spine Cervical Anterior LIFENET 01/24/2023 [id number] / [id number] / Description:LEVEL 6-7 REQ#[id number] Explanted Type Area Ice Skating Instructor Device Identifier Shelf Expiration Date Model / Serial / Lot Plate Uniplate 2lvl 36mm 1897-22-036 - [id number] Implanted:Qty: 1 on 12/23/2017 by Hussain Dixon MD at [facility] Explanted:Qty: 1 on 10/13/2018 by Hussain Dixon MD at [facility] Plate N/A: Spine Cervical Anterior J[employer]J- [employer] 1897-22-0 36 / / LOAD# 25 12/05/17 Description:all Depuy spinal hardware was processed on requisition,[id number]. Plate Uniplate 1lvl 18mm 1897-21-018 - Ssterilized September 29 2018 Implanted:Qty: 1 on 10/13/2018 by Hussain Dixon MD at [facility] Explanted:Qty: 1 on 12/28/2019 at [facility] Plate N/A: Spine Cervical Anterior J&J- [employer] 1897-21-0 18 / STERILIZE D SEPTEMBER 29 2018 / LOAD 111 Description:All Depuy spinal hardware was processed on requisition,[id number]. Screw Uniplate Sd 14mm 1897-07-014 - [id number] Implanted:Qty: 3 on 12/23/2017 by Hussain Dixon MD at [facility] Explanted:Qty: 3 on 10/13/2018 by Hussain Dixon MD at [facility] Screw N/A: Spine Cervical Anterior J&J- [employer] 1897-07-0 14 / / LOAD# 25 12/05/17 Screw Uniplate Sd 14mm 1897-07-014 - Ssterilized September 29 2018 Implanted:Qty: 2 on 10/13/2018 by Hussain Dixon MD at [facility] Explanted:Qty: 2 on 12/28/2019 at [facility] Screw N/A: Spine Cervical Anterior J&J- [employer] 1896-12-0 14 / STERILIZE D SEPTEMBER 29 2018 / LOAD 111 Vertigrft Cerv 7in Lordosis [id number] - [id number] Implanted:Qty: 1 on 12/23/2017 by Hussain Dixon MD at [facility] Explanted:Qty: 1 on 10/13/2018 by Hussain Dixon MD at [facility] Tissue N/A: Spine Cervical Anterior LIFENET 05/15/2022 [id number] / [id number] / Description:ALL LIFENET PROD UCT REORDERED UNDER REQ#[id number] Procedures Procedure Name Priority Date/Time Associated Diagnosis Comments MAMMO DIAGNOSTIC UNI RIGHT W OR WO CAD Routine 06/05/2017 3:37 PM AGRICULTURAL EQUIPMENT SALESPERSON Abnormal mammogram from Last 3 Months or Most Recently Relevant to Health Maintenance Results * (ABNORMAL) MAMMO DIAGNOSTIC UNI RIGHT W OR WO CAD (06/05/2017 3:37 PM AGRICULTURAL EQUIPMENT SALESPERSON) Anatomical Region Laterality Modality Breast Right Mammography 06/05/2017 3:37 PM AGRICULTURAL EQUIPMENT SALESPERSON Impressions 06/05/2017 4:56 PM AGRICULTURAL EQUIPMENT SALESPERSON IMPRESSION: Suspicious right breast mass at 10:00, 8 cm from the nipple. Biopsy is recommended. BI-RADS 4: Suspicious. Dictated from: [facility] [place] Narrative 06/05/2017 4:56 PM AGRICULTURAL EQUIPMENT SALESPERSON EXAM: RIGHT DIGITAL DIAGNOSTIC MAMMOGRAPHY WITH CAD [...] Advance Directives For more information, please contact: [phone] * Full Code (Latest Code Status on [...] 12:17 PM 12/26/2017 2:33 PM Care Teams Live Source Operator Relationship Specialty Start Date End Date Sami Dong DO [address] [place] [id number] PCP - General Family Practice 04/26/17
--- OUTSIDE RECORDS SUMMARY | 2025-04-22 21:42 | XMS_ITS | Encounter Summary ---
Author Organization [facility] Address [address] [place] [address] Care Team Providers Care Perishable Freight Inspector Name Role Phone Tammi Abbasi RN Unavailable [phone] Sami Dong DO Primary Care Provider [phone] Encounter Details Date Type Department Care Team (Late st Contact Info) Description 11/14/2016 [facility] Ronan Finley MD [address] [facility] [place] [address] Social History Tobacco Use Types Packs/Day Years Used Date Smoking Tobacco: Never Smokeless Tobacco: Never Alcohol Use Standard Drinks/Week Comments No 0 (1 standard drink = 0.6 oz pur e alcohol) Comments No Sex and Gender Information Value Date Recorded Sex Assigned at Not on file Legal Sex Female 10:46 AM MANAGER MAC Gender Identity Not on file Sexual Orientation [...] st Contact Info) Description 05/05/2025 9:40 AM MANAGER MAC Office Visit [facility] - Family Medicine [address] [place] [address] Miki Razo APRN-CARPENTER ASSISTANT [address] [place] [phone] documented as of this encounter Goals Goal Patient Goal Type Associated Problems Recent Progress Patient-Stated? Author Blood Pressure < 140/90 Blood Pressure 136/84(2024 11:48 AM CDT) No Elmer Plunkett documented as of this encounter Visit Diagnoses Not on filedocumented in this encounter Care Teams Perishable Freight Inspector Relationship Specialty Start Date End Date Sami Dong DO [address] [place] [phone] PCP - General Family Medicine 01/12/16 Tammi Abbasi, JULIET Medical Doctor 11/04/15 05/04/19 documented as of this encounter
--- OUTSIDE RECORDS SUMMARY | 2025-04-22 21:42 | XMS_ITS | Encounter Summary ---
Author Organization [facility] Address [address] [place] [address] Care Team Providers Care Dean Of [facility] Name Role Phone Tammi Abbasi RN Unavailable [phone] Sami Dong DO Primary Care Provider [phone] Encounter Details Date Type Department Care Team (Late st Contact Info) Description 11/12/2016 [facility] Darian Myers MD [address] [place], [place] [id number] Social History Tobacco Use Types Packs/Day Years Used Date Smoking Tobacco: Never Smokeless Tobacco: Never Alcohol Use Standard Drinks/Week Comments No 0 (1 standard drink = 0.6 oz pur e alcohol) Comments No Sex and Gender Information Value Date Recorded Sex Assigned at Not on file Legal Sex Female 10:46 AM IMAGE PROCESSING ENGINEER Gender Identity Not on file Sexual Orientation [...] st Contact Info) Description 05/05/2025 9:40 AM IMAGE PROCESSING ENGINEER Office Visit [facility] - Family Medicine [address] [place] [address] Miki Razo APRN-IT QUALITY ANALYST [address] [place] [address] documented as of this encounter Goals Goal Patient Goal Type Associated Problems Recent Progress Patient-Stated? Author Blood Pressure < 140/90 Blood Pressure 136/84(2024 11:48 AM CDT) No Elmer Plunkett documented as of this encounter Visit Diagnoses Not on filedocumented in this encounter Care Teams [facility] Of [facility] Relationship Specialty Start Date End Date Sami Dong DO [address] [place] [phone] PCP - General Family Medicine 01/12/16 Tammi Abbasi, JULIET Teletypesetter 11/04/15 05/04/19 documented as of this encounter
--- OUTSIDE RECORDS SUMMARY | 2025-04-22 21:42 | XMS_ITS | Clinical Summary ---
Author Organization [facility] Address [address] [place] [address] Care Team Providers Care Microfilm Machine Operator Name Role Phone Sami DongDonis OLIVAREZ Primary Care Provider Ronan Finley MD Unavailable [phone] Nicolás Vincent MD Unavailable [phone] Lakshmi Kirk MD Unavailable Allergies Active Allergy Reactions Criticality Noted Date Comments Kash Inhibitors Anaphylaxis,Swellin g,Other (See comments),Angioedem a High 01/18/2012 Reaction: FACIAL SWELLING Baclofen Rash Medium 01/29/2023 Banana Kcbtbt-D-Mblphjjynnkth . Other (See comments),Angioedem a High 01/29/2023 Reaction: FACIAL SWELLING Skxcvjueev-Lnjeusn-Roj feine Swelling Medium 05/20/2017 Cefazolin Angioedema High [...] mg SL tablet 01/30/20 22 Active iron saylzb-X-C10-Ca-su c-stoma (MULTIGEN) 70 mg-150 mg-10 mcg-2 mg-75 [...] (01/09/2022): Added automatically from request for surgery [id number] Anastomotic ulcer S/P gastric bypass 12/30/2021 Acute [...] often do you attend chur ch or buddhist services? Never 01/01/2022 Do you belong to any clubs o r organizations such as jewish groups, unions, fraternal or athletic groups, or [...] place to sleep or slept in a skilled nursing (including now)? No 01/01/2022 Personal Safety Answer Date Recorded Getting School Help Needed Denies 06/04 Comments No Sex and Gender Information Value Date Recorded Sex Assigned at Not on file Legal Sex Female 6:30 PM ROCK WORKER Gender Identity Not on file Sexual Orientation Not on file Obstetrics History Para Term AB IAB SAB Ectopic Multiple Livin g Live Births 4 Date Outcome GA Total Labor Labor/2nd/3rd Weight Sex Type Anes PTL Meg A1 A5 Name Clin Last Filed Vital Signs Vital Sign Reading Time Taken Comments Blood Pressure 126/100 07/20/2022 12:24 PM ROCK WORKER Pulse 77 07/20/2022 12:24 PM ROCK WORKER Temperature 36.7 C (98 F) 07/20/2022 9:37 AM ROCK WORKER Respiratory Rate 14 07/20/2022 12:24 PM ROCK WORKER Oxygen Saturation 100% 07/20/2022 12:24 PM ROCK WORKER Inhaled Oxygen Concentration - - Weight 75.3 [...] Discontinued 07/04 Medical Devices Implanted Type Area Multi Site Leasing Consultant Device Identifier Shelf Expiration Date Model / Serial / Lot [employer] Christy Contour 6fr 24cm Large Inner Lumen Low Profile Bladder Sahil Taper Latex Free 180-222 - [id number] Implanted:Qty: 1 on 01/01/2022 by Nicolás Vincent MD at [facility] Right: Ureter [employer] Christy 10/18/2024 180-222 / / [id number] Procedures Procedure Name Priority Date/Time Associated Diagnosis Comments COLONOSCOPY 07/20/2022 7:22 AM ROCK WORKER from Last 3 Months or Most Recently Relevant to Health Maintenance Results * COLONOSCOPY (07/20/2022 7:22 AM ROCK WORKER) Anatomical Region Laterality Modality Other Narrative Procedure Note Ronan Finley MD - 07/20/2022 7:22 AM CST ENDOSCOPY LAB Patient Name: Deepali Nelson Procedure Date: 07/20/2022 7:22 AM Admit Type: Outpatient Room: [facility] Date of : 1965 Instrument Name: [id number] [...] the bowel preparation was evaluatedusing the BBPS ([place] Bowel Preparation Scale) withscores of: Right Colon [...] Health Maintenance Insurance [address] [place] [address] MEDICARE [facility] [place] [address] MEDICARE [facility] [place] [address] MEDICARE [facility] Advance Directives For more information, please contact: [phone] * Full Code (Latest Code Status on File) Date Activated Date Inactivated Comments 12/29/2021 1:57 PM 01/09/2022 12:25 AM * Full Code Date Activated Date Inactivated Comments 10/24/2019 3:31 AM 10/25/2019 8:21 PM Care Teams Microfilm Machine Operator Relationship Specialty Start Date End Date Sami Dong DO [address] [place] [address] PCP - General 11/12/16 Ronan Finley MD [address] [facility] [address] [place] [address] Consulting Physician Gastroenterology 01/08/22 Nicolás [place] [address] [place] [address] Consulting Physician Urology 01/08/22 [place] [address] [place] [address] Anesthesiologist Anesthesiology 01/08/22
[2025-04-22] MEDS: HYDROmorphone HCL INJ (*CRX) 1 MG/ML SYR IV PUSH (21:48)
[2025-04-22] MEDS: cefTRIAXone 2 GM in SODIUM CHLORIDE 0.9% IV 100 ML 200 ML IVPB (21:49)
[2025-04-22 21:50] LABS: Hematocrit 38.6 % (37.0-47.0); Hemoglobin 13.2 g/dL (12.0-15.0)
[2025-04-22 22:01] VITALS: BP 154/97; PULSE 80; RESP 14; O2SAT 94
[2025-04-22] MEDS: HYDROmorphone HCL INJ (*CRX) 1 MG/ML SYR 0.5 MG IV PUSH (22:40)
[2025-04-22 23:21] VITALS: BP 142/86; PULSE 72; RESP 18; O2SAT 99
[2025-04-23 00:03] VITALS: BP 129/86; PULSE 82; RESP 16; O2SAT 99
== END 2025-04-23 00:05 | disposition short-term general hospital (02) ==
PROVIDERS: Emergency Medicine; Emergency Provider Student in an Organized Health Care Education/Training Program
DX: K92.2 Gastrointestinal hemorrhage, unspecified (principal); R58 Hemorrhage, not elsewhere classified; R10.9 Unspecified abdominal pain; I10 Essential (primary) hypertension; Z98.84 Bariatric surgery status; Z87.11 Personal history of peptic ulcer disease; Z90.49 Acquired absence of other specified parts of digestive tract; F41.8 Other specified anxiety disorders; F98.8 Other specified behavioral and emotional disorders with onset usually occurring in childhood and adolescence; Z96.659 Presence of unspecified artificial knee joint; Z90.711 Acquired absence of uterus with remaining cervical stump; R16.0 Hepatomegaly, not elsewhere classified; K56.7 Ileus, unspecified; R00.1 Bradycardia, unspecified
CPT/HCPCS: 36415; 71045; 71275; 74174; 80053; 81003; 83605; 83690; 84484; 85014; 85018; 85025; 85610; 85730; 93005; 96361; 96365; 96375; 96376; 99291; J0696; J1171; J1200; J2270; J2405; J2919; J7030; Q9967